=== PATIENT | female | born 1965 | race Hispanic/Latino ===

== ENCOUNTER 2016-06-25 11:38 | Inpatient (IN) | payer OTHER, MEDICAID ==
[~2016-06-25] VITALS: Ht 160 cm; Wt 68.8 kg
[~2016-06-25 11:38] MED LIST: GABA100C PO; INSU100V3 IJ; INSU100V6 SQ; SIMV10TA4 PO; VENL75CA3 PO
[2016-06-25 11:40] VITALS: BP 165/92; PULSE 82; RESP 10; O2SAT 98
--- NOTE | 2016-06-25 12:06 | ED.REPORT ---
HPI-Neurologic Deficit Date of Service Jun 25, 2016 ED Provider: Con Steve DO Pt is a 50 y/o female w/ a hx of HTN, IDDM, presenting to the ED with a family member due to multiple vague neurological complaints onset 2-3 days ago. Pt c/o confusion (disorientation), bilateral fingertip numbness, small duration of bilateral lower extremity weakness, intermittent mild headache, blurred vision, dizziness, nausea. Pt denies vomiting, diarrhea, bowel or bladder incontinence, cough, fever. She has a remote history of migraines. There is a family history of strokes. Nursing Notes Stated Complaint: DISORIENTED/DIZZY/POSSIBLE HIGH BLOOD PRESSURE Chief Complaint: Neuro Symptoms/ Deficits Nursing Notes Reviewed: Yes Allergies: Coded Allergies: No Known Allergies (Verified , 01/31/12) Scheduled Insulin Aspart (NovoLOG U-100 Pen) 100 Unit/Ml Insuln.pen 10 UNITS SQ TIDWM Insulin Glargine (Lantus U100 Solostar Insulin Pen) 100 Unit/1 Ml Insuln.pen 50 UNITS SQ HS Venlafaxine (Venlafaxine) 100 Mg Tablet 100 PO MORNING Scheduled PRN Gabapentin (Gabapentin) 100 Mg Capsule 100 MG PO HS PRN PRN For Restlessness General Time Seen by Provider: 12:13 Chief Complaint Mental status change Hx Obtained From: Patient Arrived By: Walk-in Sudden in Onset?: No Onset Occurred: 2 days ago Symptom Duration: Since onset Severity: Current: No pain currently Severity: Maximum: No pain Similar Sx Previous: No Risk Factors TPA Administration/Criteria Stroke Thrombolytic Therapy : TPA Considered: Yes TPA Administered Intravenously: No, exclusion criteria NIH Stroke Scale Level of Consciousness: Alert and responsive (0) Ask Month & Age: Both questions right (0) Open/Close Eyes/Hand Business Analytics Manager: Performs both tasks (0) Horizontal EO Movements: None (0) Visual Hunter: Complete hemianopsia (2) (left) Facial Palsy: Normal symmetry (0) Right Arm Motor Drift (10s): No drift 10 sec (0) Left Arm Motor Drift (10s): No drift 10 sec (0) Right Leg Motor Drift (5s): No drift 5 sec (0) Left Leg Motor Drift (5s): No drift 5 sec (0) Limb Ataxia FNF/Heel-Lee: Ataxia in 1 limb (1) (LUE) Sensation (Arms/Legs/Face): No sensory loss (0) Dysarthria: No dysarthria, normal (0) NIHSS Score: 3 Time NIHSS Performed: 12:15 Date NIHSS Performed: Jun 25, 2016 Past Medical History Past Medical History IDDM Hypertension Peripheral neuropathy Hx migraines Past Surgical History denies Smoking History Never Smoker Social History Alcohol Use: 1-3 per week Drug Use: Denies drug use Occupation lives by self. Ambulatory Status Independent Review of Systems Constitutional: Denies: Chills, Fever Eyes: Reports: Blurred bilateral Respiratory: Denies: Non-productive cough, Shortness of breath Cardiovascular: Denies: Chest pain, Dyspnea on exertion GI: Reports: Nausea, Denies: Abdominal pain, Diarrhea, Vomiting Neurologic: Reports: Confusion, Dizziness, Headache, Numbness, Vision change, Weakness, Denies: Bladder dysfunction, Bowel dysfunction, Focal weakness, Seizure, Shaking, Slurred speech, Spinning sensation, Syncope, Unable to speak Complete sys rev & neg: except as marked. Physical Exam Initial Vital Signs Vital Signs (First) Date Time Temp Pulse Resp B/P Pulse Ox O2 Delivery O2 Flow Rate FiO2 06/25/16 11:40 36.2 82 10 165/92 98 Room Air Initial VS: Reviewed, Vital signs abnormal ENT: Mucous membranes moist, Conjunctiva normal, No scleral icterus Neck: Supple, Full range of motion Abdomen / GI: Soft, Non-tender Extremities: Vascular intact, Neuro intact, No swelling, No tenderness Skin: Warm, Dry, No cyanosis Psychiatric: Mood/affect normal, Behavior normal, Normal thought content General/Constitutional: Awake, Alert, No acute distress, Cooperative, Not toxic appearing Head / Eyes: Atraumatic, Normocephalic, PERRL Respiratory / Chest: Atraumatic, Breath sounds NL, Breath sounds = bilat, No respiratory distress, No rales, No rhonchi, No wheezing, No retractions, No stridor, No chest tenderness, No chest wall deformity, No crepitus Cardiovascular: Heart rate NL, Regular rhythm, Heart sounds NL, No gallop, No murmurs, No rubs, Cap refill not delayed, Peripheral circulation NL Neurologic: Oriented X3, Speech NL, No motor deficits, No sensory deficits Complete left hemianopsia - 2 pts LUE ataxia - 1 pt NIH = 3 pts Otherwise normal Interpretation & Diagnostics Lab Results Interpretation Result Diagram: 06/25/16 1200 06/25/16 1200 Test 06/25/16 12:00 06/25/16 12:29 White Blood Count 6.8th/mm3 (3.8-10.1) Red Blood Count 4.77mil/mm3 (3.90-5.20) Hemoglobin 13.3g/dL (12.0-15.6) Hematocrit 38.9% (35.0-46.0) Mean Corpuscular Volume 81.6fL (81-100) Mean Corpuscular Hemoglobin 27.9pg (27.0-35.0) Mean Corpuscular Hemoglobin Concent 34.2% (32.0-37.0) Red Cell Distribution Width 12.3% (12.3-15.4) Platelet Count 308bil/L (150-400) Neutrophils (%) (Auto) 55.2% (40-74) Lymphocytes (%) (Auto) 36.5% (14-46) Monocytes (%) (Auto) 5.1% (4-12) Eosinophils (%) (Auto) 2.6% (0-5) Basophils (%) (Auto) 0.3% (0-3) Activated Partial Thromboplast Time 26.9sec (22.8-33.0) Sodium Level 132mEq/L (134-144) Potassium Level 3.6mEq/L (3.5-5.2) Chloride Level 96mEq/L (97-108) Carbon Dioxide Level 22mmol/L (18-29) Blood Urea Nitrogen 8mg/dL (6-24) Creatinine 0.54mg/dL (0.57-1.00) Estimat Glomerular Filtration Rate 170mL/min (>59) Glucose Level 404mg/dL (60-99) Calcium Level 9.1mg/dL (8.5-10.1) Magnesium Level 1.8mg/dL (1.6-2.6) Total Bilirubin 0.5mg/dL (0.0-1.2) Aspartate Amino Transf (AST/SGOT) 17U/L (0-50) Alanine Aminotransferase (ALT/SGPT) 20U/L (0-32) Alkaline Phosphatase 104U/L (25-150) Total Protein 7.3g/dL (6.4-8.4) Albumin 4.3g/dL (3.4-5.0) Hold Loving Top Tube Received (Received) ECG Interpretation Time: 13:23 Interpreted by: ED physician Normal ECG Interpretation: Normal ECG w/ rate of... (79), Normal rate, Normal sinus rhythm, No acute ischemic changes, Normal QRS, Normal axis, Normal intervals, Adequate tracing CT Head Interpretation IMPRESSION: No acute intracranial abnormality. No explanation for confusion. Dictated by: Valerie Callahan M.D. on 06/25/2016 at 12:43 Approved by: Valerie Callahan M.D. on 06/25/2016 at 12:44 Study: Head CT no contrast Interpretation / Wet Read by: Interpret - Radiologist Re-Eval/Medical Decision Med Decision/Clinical Course Patient has an NIH stroke scale of 3 with left-sided hemianopsia and left arm ataxia highly suspicious for subacute stroke. She will be admitted. Re-Evaluation/Progress : Time of Eval: 12:53 Re-Evaluation/Progress Note: Pt rechecked. Informed pt of need for admission. Pt understands and agrees with plan for admission. All questions addressed. Consultation : Referral / Consult Name: Amanda Arceo DO Consulted With: Hospitalist Call Returned at: 14:44 Temperature Logging Operator: Will see patient, Agrees with eval, Agrees with plan, Accepts admit Counseled Regarding: Diagnosis, Lab results, Need for admission Discharge & Departure Impression: Primary Impression: CVA (cerebral vascular accident) CVA mechanism: unspecified Qualified Code: I63.9 - Cerebral infarction, unspecified Disposition: ADMITTED TO HOSPITAL Discharge Condition All VS Reviewed: Yes Condition: Stable Referrals: Fermin Larios DO (PCP) Praveen Attestation Portions of this note were transcribed by Roman Jeronimo. I, Dr. Steve personally performed the history, physical exam and medical decision-making; I reviewed and confirmed the accuracy of the information in the transcribed note. Signed by Praveen Pena, 06/25/16 - 1300 copies to: Fermin Larios Timothy S DO Jun 25, 2016 12:06 ROMAN JERONIMO Jun 25, 2016 12:20 ROMAN JERONIMO Jun 25, 2016 12:20
--- NOTE | 2016-06-25 12:46 | DRSVH ---
PROCEDURE: CT BRAIN WITHOUT CONTRAST ([id number]) INDICATIONS: confusion TECHNIQUE: Noncontrast 4.5 mm thick angled axial sections acquired from the foramen magnum to the vertex, with c oronal reformats. COMPARISON: [facility], CT, BRAIN W/O CONTRAST, 03/15/2007, 9:29. FINDINGS: Image quality: Excellent. CSF spaces: Basal cisterns are patent. No extra-axial fluid collections. The ventricles are symmet joe in size and shape. Brain: No intracranial bleeds or masses. There is cerebral volume loss for age, with resultant vent ricular and sulcal prominence. There are periventricular and deep white matter chronic small vessel ischemic changes. There is intracranial internal carotid artery atherosclerosis. Skull and face: Calvarium and visualized facial bones appear intact, without suspicious lesions. Sinuses: Left maxillary sinus retention cyst is present. Visualized sinuses and mastoids are otherwi se clear. IMPRESSION: No acute intracranial abnormality. No explanation for confusion. Dictated by: Valerie Callahan M.D. on 06/25/2016 at 12:43 Approved by: Valerie Callahan M.D. on 06/25/2016 at 12:44
[2016-06-25] MEDS ORDERED: 0.9% Sodium Chloride 1,000 ML IV ONE (12:56)
[2016-06-25 13:12] LABS: INR 0.94 ratio
[2016-06-25 13:15] LABS: BASOPHILS % (AUTO) 0.3 % (0-3); EOSINOPHILS % (AUTO) 2.6 % (0-5); MONOCYTES % (AUTO) 5.1 % (4-12); Mean Corpuscular Hemoglobin 27.9 pg (27.0-35.0); Mean Corpuscular Volume 81.6 fL (81-100); NEUTROPHILS % (AUTO) 55.2 % (40-74); Platelet Count 308 bil/L (150-400)
[2016-06-25 14:09] VITALS: BP 139/79; PULSE 76; RESP 13; O2SAT 97
[2016-06-25] MEDS ORDERED: SIMV40TA5 (14:14)
[2016-06-25] MEDS ORDERED: GABA-500 PO (14:14)
[2016-06-25] MEDS ORDERED: VENL75CA95 (14:14)
[2016-06-25] MEDS ORDERED: INSU100I13 SQ (14:14)
[2016-06-25] MEDS ORDERED: VENL100T3 PO (14:14)
[2016-06-25] MEDS ORDERED: OXYC1TAB24 (14:14)
[2016-06-25] MEDS ORDERED: AZIT250T4 (14:14)
[2016-06-25] MEDS ORDERED: INSU100I SQ (14:14)
[2016-06-25] MEDS ORDERED: LISI-571 (14:14)
--- NOTE | 2016-06-25 14:29 | NUR ---
Evaluation completed. Please go to "Notes" then click on "Assessments and Notes" (bottom left corner of screen). Then select appropriate discipline tab on top of screen.
[2016-06-25 14:40] VITALS: BP 139/79; PULSE 76; RESP 13; O2SAT 97
[2016-06-25] MEDS ORDERED: Alum-Mag Hydrox-Simeth 30 mL Suspension PO PRN ×2 (14:45→16:00)
[2016-06-25] MEDS ORDERED: Ondansetron 2 mg/mL 2 mL Inj IVPUSH PRN (14:45)
[2016-06-25 15:54] VITALS: BP 149/78; PULSE 74; RESP 19; O2SAT 97
[2016-06-25 15:55] VITALS: PULSE 75
[2016-06-25] MEDS ORDERED: 0.9% Sodium Chloride 1,000 ML IV SCH (15:56)
[2016-06-25] MEDS ORDERED: Polyethylene Glycol (PEG) 17 Gm Powder PO PRN (16:00)
[2016-06-25] MEDS ORDERED: Labetalol 5 mg/mL 4 mL Inj IVPUSH PRN (16:00)
[2016-06-25 16:01] LABS: APPEARANCE,URINE CLEAR (CLEAR,HAZY); COLOR,URINE YELLOW (YELLOW); OCCULT BLOOD,URINE NEGATIVE (NEGATIVE); UROBILINOGEN,URINE NORMAL (NORMAL)
[2016-06-25] MEDS ORDERED: Glucose 40% Oral Gel 15 Gm Tube PO PRN (16:25)
--- NOTE | 2016-06-25 16:36 | PCM.HPMED ---
Subjective Date of Service Jun 25, 2016 Primary Provider: Admitting Physician: Amanda Arceo DO Primary Care Physician: Fermin Larios DO Attending Physician: Amanda Arceo DO Admit Status: From the Emergency Department Chief Complaint: Confusion, weakness, blurry vision. History of Present Illness: Pt is a 50 y/o female w/ a hx of HTN, IDDM, presenting to the ED with a family member due to multiple vague neurological complaints onset 2-3 days ago. Patient is a poor historian and family member is no longer at bedside. Per ED notes, pt c/o confusion (disorientation), bilateral fingertip numbness, small duration of bilateral lower extremity weakness, intermittent mild headache, blurred vision, dizziness, nausea. Pt denies vomiting, diarrhea, bowel or bladder incontinence, cough, fever. She has a remote history of migraines. There is a family history of strokes. She admits to forgetting to take her insulin and she doesn't remember that she is supposed to be on blood pressure medication (after review of [facility], was prescribed lisinopril which she denies knowing about). Review of Systems: Positive per HPI, otherwise negative Allergies Coded Allergies: No Known Allergies (Verified , 01/31/12) Home Medications Insulin Aspart (NovoLOG U-100 Pen) 100 Unit/Ml Insuln.pen 10 UNITS SQ TIDWM Insulin Glargine (Lantus U100 Solostar Insulin Pen) 100 Unit/1 Ml Insuln.pen 50 UNITS SQ HS Venlafaxine (Venlafaxine) 100 Mg Tablet 100 PO MORNING Scheduled PRN Gabapentin (Gabapentin) 100 Mg Capsule 100 MG PO HS PRN PRN For Restlessness PMH Diabetes mellitus type I Hypertension Diabetic peripheral neuropathy Hx migraines Depression and anxiety PTSD Surgical History bladder surgery Family History Sister with breast cancer Many family members with stroke Social History Hx Alcohol Use: Yes (social only) Hx Substance Use: No Hx Tobacco Use: No Smoking Status: Never Smoker Living Arrangement: Alone Exam Vital Signs Vital Sign - Last Date Time Temp Pulse Resp B/P Pulse Ox O2 Delivery O2 Flow Rate FiO2 06/25/16 15:55 75 06/25/16 15:54 36.7 19 149/78 97 Room Air Exam NIH stroke scale: Level of Consciousness: Alert and responsive (0) Ask Month & Age: Both questions right (0) Open/Close Eyes/Hand Traffic Attendant: Performs both tasks (0) Horizontal EO Movements: None (0) Visual Hunter: Complete hemianopsia (2) (left) Facial Palsy: Normal symmetry (0) Right Arm Motor Drift (10s): No drift 10 sec (0) Left Arm Motor Drift (10s): Drift left arm (1) Right Leg Motor Drift (5s): No drift 5 sec (0) Left Leg Motor Drift (5s): No drift 5 sec (0) Limb Ataxia FNF/Heel-Lee: Ataxia in 1 limb (1) (RUE) Sensation (Arms/Legs/Face): No sensory loss (0) Dysarthria: No dysarthria, normal (0) NIHSS Score: 4 Time NIHSS Performed: 16:00 Date NIHSS Performed: Jun 25, 2016 DO Cristo General: A&O x3, pleasant, no acute distress HEENT: EOMI, PEERL, neck supple, full ROM, trachea midline Pulmonary: clear to auscultation B/L Cardiovascular: Regular rhythm, normal rate, No M/G/R Abd: soft, nontender, nondistended Extremities: no edema Psych: Appropriate mood and effect . Lab and Diagnostics Result Diagram: 06/25/16 1200 06/25/16 1200 X-Rays, CTs and MRIs 06/25/16 CT BRAIN WITHOUT CONTRAST ([id number]) INDICATIONS: confusion TECHNIQUE: Noncontrast 4.5 mm thick angled axial sections acquired from the foramen magnum to the vertex, with coronal reformats. COMPARISON: [facility], CT, BRAIN W/O CONTRAST, 03/15/2007, 9:29. FINDINGS: Image quality: Excellent. CSF spaces: Basal cisterns are patent. No extra-axial fluid collections. The ventricles are symmetric in size and shape. Brain: No intracranial bleeds or masses. There is cerebral volume loss for age , with resultant ventricular and sulcal prominence. There are periventricular and deep white matter chronic small vessel ischemic changes. There is intracranial internal carotid artery atherosclerosis. Skull and face: Calvarium and visualized facial bones appear intact, without suspicious lesions. Sinuses: Left maxillary sinus retention cyst is present. Visualized sinuses and mastoids are otherwise clear. IMPRESSION: No acute intracranial abnormality. No explanation for confusion. Dictated by: Valerie Callahan M.D. on 06/25/2016 at 12:43 Approved by: Valerie Callahan M.D. on 06/25/2016 at 12:44 Assessment & Plan Pt is a 50 y/o female w/ a hx of HTN, IDDM, presenting to the ED with a family member due to multiple vague neurological complaints onset 2-3 days ago. 1. Acute CVA, present on admission - Last felt normal 2 days ago - NIH stroke score 4. + left hemianopsia, L pronator drift, R UE ataxia - Patient has diabetic neuropathy so difficult to assess any sensation loss - CT showed no acute intracranial abnormality. - Carotid doppler pending - CTA pending - Passed swallow examination - PT and OT pending - Echocardiogram pending - Atorvastatin started, aspirin given in the ED - Nurse to asses neuro Q4hrs - Telemetry overnight awaiting echocardiogram. Consider d/c tomorrow 2. Diabetes mellitus type 1, present on admission, chronic - Patient admits to forgetting her insulin, especially at night - Patient states that she is prescribed 50 U glargine at night and Novolog 10 units before each meal - [facility] records show PCP prescribed 55 units QHS and QAM (?) - Ordered glargine 30 units QHS, lispro 5 units before each meal, medium dose coverage. Will adjust as needed - Last A1c per PCP records was 8.6 in October 2015 - A1c pending 3. Diabetic neuropathy, present on admission, chronic - gabapentin, prescribed 600mg BID. Will hold off in the acute setting while doing Q4h neuro checks. 4. Depression with anxiety, present on admission, chronic Continue home dose of Venlafaxine 5. Medication noncompliance -Patient admits to not taking both her insulin and hypertensive medications. Patient states that she does not take them because she forgets to take them however according to family sometime she electively decides not to take them. - Acetaminophen as needed for mild pain/fever/headache - Bowel regimen as needed - Antiemetic as needed Patient admitted under inpatient status with expected length of stay > 2 midnights for severity of present symptoms, complexities of treatment plan and risk for adverse events CODE STATUS: Full. Confirmed with patient VTE Prophylaxis: Sub-Q Heparin (Unfractionated) Resuscitation Status: CPR: Attempt Resuscitation Attending Statement The patient was seen and examined together with Dr. Lemons on 06/25/16 and I have added additional information to the note above. copies to: Fermin Larios DO Zakiya Lemons DO Jun 25, 2016 16:35 Amanda Arceo DO Jun 27, 2016 15:50
[2016-06-25 17:04] LABS: INR 0.93 ratio
[2016-06-25 17:14] LABS: APPEARANCE,URINE CLEAR (CLEAR,HAZY); COLOR,URINE YELLOW (YELLOW); OCCULT BLOOD,URINE NEGATIVE (NEGATIVE); UROBILINOGEN,URINE NORMAL (NORMAL)
--- NOTE | 2016-06-25 17:50 | DRSVH ---
PROCEDURE: US BILATERAL DUPLEX DOPPLER IMAGING OF THE CAROTIDS ([id number]) INDICATIONS: Evaluate stroke follow up TECHNIQUE: Color and pulse Doppler interrogation was performed of both carotid systems, with image documentation and velocity measurements. COMPARISON: None. FINDINGS: All stenosis calculations are based on NASCET criteria. Right side: Brachial blood pressure: 139/79 mm Hg. Common carotid artery peak systolic velocity: 59 cm/sec. Internal carotid artery peak systolic velocity: 59 cm/sec. Internal carotid artery end diastolic velocity: 25 cm/sec. External carotid artery peak systolic velocity: 76 cm/sec. ICA/CCA peak systolic ratio: 1.0. Marcelino scale imaging description: Mild calcific plaque at the bifurcation Percent internal carotid artery stenosis: Less than 50%. Vertebral artery: Flow direction is antegrade. Left side: Brachial blood pressure: 149/78 mm Hg. Common carotid artery peak systolic velocity: 66 cm/sec. Internal carotid artery peak systolic velocity: 75 cm/sec. Internal carotid artery end diastolic velocity: 23 cm/sec. External carotid artery peak systolic velocity: 64 cm/sec. ICA/CCA peak systolic ratio: 1.14. Marcelino scale imaging description: Mild calcific plaque at the bifurcation Percent internal carotid artery stenosis: Less than 50%. Vertebral artery: Flow direction is antegrade. IMPRESSION: 1. Less than 50% bilateral internal carotid artery stenosis. 2. Antegrade vertebral artery flow bilaterally. Dictated by: Valerie Callahan M.D. on 06/25/2016 at 17:47 Approved by: Valerie Callahan M.D. on 06/25/2016 at 17:48
[2016-06-25] MEDS: Insulin LISPRO 300 Unit/3 mL Inj SUBQ SCH ×2 (18:20→20:45)
--- NOTE | 2016-06-25 19:34 | NUR ---
Mentation Patient is alert and oriented X3. Able to make needs known. stable vital signs. blood sugar 271. Insulin given as ordered. c/o headaches. PRN Tylenol given with effective results. Carotid doppler done at bed side. Urine sample collected and sent to lab. family at bed side. Doctor at bed side this shift to see patient. patient eating dinner at bed side after set up and no c/o difficulty swallowing. Continue to monitor for vital signs, neuros, and blood sugars.
[2016-06-25 20:34] VITALS: BP 149/79; PULSE 76; RESP 18; O2SAT 96
[2016-06-25] MEDS: Insulin GLARgine 100 Unit/mL Syringe SUBQ SCH (20:44)
[2016-06-25] MEDS ORDERED: FOLI0.4T2 PO (21:22)
[2016-06-25] MEDS ORDERED: VENL75TA87 PO (22:11)
[2016-06-25] MEDS ORDERED: LISI-571 PO (22:11)
[2016-06-25] MEDS ORDERED: SIMV40TA5 PO (22:11)
[2016-06-25] MEDS ORDERED: ACET325C PO (22:12)
[2016-06-26] VITALS (9 sets, daily range): BP systolic 119–158; BP diastolic 76–88; PULSE 67–82; RESP 16–18; O2SAT 97–100
[2016-06-26] MEDS: Heparin 5,000 Unit/mL Inj SUBQ SCH ×3 (01:04→16:45)
[2016-06-26] MEDS ORDERED: 0.9% Sodium Chloride 1,000 ML IV ONE (07:40)
[2016-06-26] MEDS: Venlafaxine XR 75 mg ER24 Capsule PO SCH (08:25)
[2016-06-26] MEDS: Insulin LISPRO 300 Unit/3 mL Inj SUBQ SCH ×5 (08:27→21:10)
[2016-06-26 08:44] LABS: Mean Corpuscular Hemoglobin 27.8 pg (27.0-35.0); Mean Corpuscular Volume 81.4 fL (81-100)
--- NOTE | 2016-06-26 14:15 | DRSVH ---
PROCEDURE: MRI STROKE PROTOCOL ([id number]) Pre- and post-contrast brain MRI, non-contrast brain MR angiogram, pre- and postcontrast neck MR alex ogram INDICATIONS: stroke TECHNIQUE: Brain: Noncontrast axial T1 spin echo, axial T2 fast spin echo, sagittal and axial FLAIR, coronal T2 fast spin echo, axial gradient echo, axial diffusion and ADC through the brain. After the administr ation of contrast, axial 3D VIBE of the cranial vasculature and brain. Brain MRA: Non-contrast 3-D time of flight MR angiogram, with multiple alsnwat-anrqoramk-fyoszuseyr (MIP) reformats performed. Neck MRA: Axial and sagittal TruFISP through the neck. Coronal dynamic MR angiogram during administ ration of contrast in the arterial and venous phases, with 3-dimenstional jjccbhy-umybjxids-sdzseisoy n (MIP) reformats constructed from subtraction images. COMPARISON: [facility], MR, BRAIN W&W/O CONTRAST, 03/16/2007, 16:19. [facility], US, US CAROTID DPLX DOPPLER BILAT, 06/25/2016, 16:56. FINDINGS: Image quality: Excellent. BRAIN: CSF spaces: Ventricles are normal in size and shape. Basal cisterns are patent. No extra-axial flu id collections. Brain: No intracranial bleeds or mass effects. Marcelino-white matter interface is normal. Diffusion we ighted images demonstrate a roughly 5 cm anteroposterior region of elevated signal intensity involvin g the corpus callosal splenium, extending into the right anterior/medial temporal lobe. There are sev eral small adjacent foci of elevated diffusion signal within the right occipital lobe, as well as the posterior limb of the right internal capsule and right thalamus. These lesions demonstrate moderate FLAIR signal elevation. Mild diffuse cervical volume loss. Mild degree of patchy high FLAIR signal wi thin the periventricular and subcortical white matter. Brainstem appears normal. Normal intravascula r flow voids are present. No abnormal intracranial enhancement. Skull and face: Calvarial marrow signal is normal. Orbits appear normal. Sinuses: Left maxillary sinus retention cysts. Sinuses and mastoids are otherwise clear. 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 Anterior circulation: Intracranial internal carotid arteries are normal in size and enhancement. Th e flow within the paired anterior cerebral arteries is normal and symmetric. The flow within the mid dle cerebral arteries is normal and symmetric. The anterior communicating artery is seen. No stenos es, occlusions, or aneurysms. Posterior circulation: The visualized portions of the vertebral arteries demonstrate normal caliber, and join to form a normal appearing basilar artery. Left protrusio artery demonstrates normal flow. The right posterior cerebral artery demonstrates markedly reduced flow. NECK MR ANGIOGRAM: Carotids: Great vessels demonstrate a conventional anatomy as they arise from the aortic arch. The origins of the common carotid arteries appear patent. The calibers and courses of both common caroti d arteries are normal. The bifurcation regions appear normal bilaterally. The internal carotid raghu barrera demonstrate normal course and caliber. Posterior circulation: The origins of the vertebral arteries appear patent. Proximal vertebral arter ies not well-seen secondary venous overlap. Vertebral arteries are otherwise within normal limits Miscellaneous: There is a persistent right carotid-basilar communication as described above. Subclavi an arteries appear patent. Pre-contrast images through the neck show no soft tissue abnormalities. IMPRESSION: BRAIN MRI: 1. Subacute right sided infarct involving the corpus callosal splenium, medial temporal lobe, thalamu s, posterior limb of internal capsule, and occipital lobe. 2. No acute process. BRAIN MR ANGIOGRAM: 1. Persistent right trigeminal carotid-basilar anastomosis. 2. Severely reduced flow within the right posterior cerebral artery, compatible with the above descri bed infarct. NECK MR ANGIOGRAM: 1. No internal carotid artery stenosis bilaterally. 2. The vertebral arteries are patent as visualized, but are not well-seen proximally secondary to edvin ous overlap. The estimate of stenosis included in the report of the imaging study was calculated using the NASCET method Dictated by: Valerie Callahan M.D. on 06/26/2016 at 14:01 Approved by: Valerie Callahan M.D. on 06/26/2016 at 14:13
--- NOTE | 2016-06-26 14:24 | DRSVH ---
[facility] [address] [place] [address] Echocardiogram Report Name: ESTHER JOHN Study Date: 06/26/2016 Height: 63 in Hospital Exam Location: [facility] Weight: 153 lb Gender: Female BSA: 1.7 m2 : 1965 Age: 50 yrs BP: 158/88 mmHg Reason For Study: CVA Ordering Physician: HOSPITALIST [facility] Performed By: Roddy Arevalo Referring Physician: Jw GALAN Interpretation Summary 1. Normal left ventricular size with mild proximal septal thickening and normal systolic function with an estimated EF of 60-65% 2. Normal right ventricular size and systolic function. 3. No evidence for valvular pathology. 4. A saline contrast study showed no evidence for interatrial shunt. There is no old study for comparison Procedure: A two-dimensional transthoracic echocardiogram with color flow and Doppler was performed. The study quality was technically good. There is no prior echocardiogram noted for this patient. A saline contrast injection was performed to assess for cardiac shunting. The patient was in normal sinus rhythm during the exam. Left Ventricle: The left ventricle is normal in size. There is normal left ventricular wall thickness. Proximal septal thickening is noted. The ejection fraction is estimated to be 60-65%. No obvious wall motion abnormalities. Right Ventricle: The right ventricle is normal in size and function. Atria: Both atria are normal in size. Injection of contrast documented no interatrial shunt. Mitral Valve: The mitral valve is normal in structure and function. There is trace mitral regurgitation. Aortic Valve: The aortic valve is trileaflet. The aortic valve opens well. No aortic regurgitation is present. Tricuspid Valve: The tricuspid valve is normal in structure and function. No tricuspid regurgitation. Pulmonary artery pressures cannot be estimated because of the lack of a measurable TR jet velocity. Pulmonic Valve: The pulmonic valve is normal in structure and function. There is no pulmonic valvular regurgitation. Great Vessels: The aortic root is normal size. The dimensions of the ascending aorta are normal. The pulmonary artery is normal size. The IVC is of normal diameter and collapses greater than 50% with a sniff. This suggests a low right atrial pressure of 3 mm Hg. Pericardium/ Pleura There is no pericardial effusion. There is no pleural effusion. MMode/2D Measurements & Calculations EPSS: 0.19 cm RA long axis LVOT diam: 2.1 cm IVSd: 0.76 cm LA A2 area: 15.0 cm Ao root diam LA A4 area: 16.1 cm LA length (vol) RA area: 13.1 cm Aortic Jxn: 2.3 cm RA vol: 36.3 ml asc Aorta Diam LA vol: 46.8 ml RA : 21.0 ml/m2 LA vol index IVC diam: 1.5 cm RVD1 (basal) RVD2 (mid): 3.1 cm Doppler Measurements & Calculations Ao V2 max MV E max braeden MV E/A: 0.82 PA V2 max : 109.0 cm/sec : 67.3 cm/sec Med Peak E' Braeden : 62.1 cm/sec Ao max P.8 mmHg MV A max braeden PA mean PG Ao mean P.8 mmHg : 82.1 cm/sec E/E' med: 14.8 : 0.88 mmHg LVOT Max Braeden Lat Peak E' Braeden PA Accel Time : 77.6 cm/sec : 0.09 sec E/E' lat: 11.4 DRU(I,D): 2.4 cm E/e' average sev ratio: 0.71 Pulm A Revs Dur MV A dur : 0.12 sec MV dec time: 0.18 secAo V2 mean LV V1 max PG PA V2 mean : 81.1 cm/sec : 43.6 cm/sec Ao V2 VTI: 24.7 cm LV V1 VTI : 17.7 cm DRU(V,D): 2.4 cm2 DRU indexed to SARKIS Mcdermott (cm^2/m^2): 1.4 Dur: -0.01 msec Reading Physician:02:23 PM
--- NOTE | 2016-06-26 14:54 | NUR ---
Social Work: Brief Note Data: Pt is a 50 y/o female admitted for CVA, DM. Pt's PCP is Dr Rome, pt's insurance is [employer] blind/disabled. EMR reviewed. PT and MD recommending HH for pt at d/c. FILM NUMBERER met with pt at bedside, role explained. Pt states she is agreeable to HH, choice list provided, no preference of company stated. FILM NUMBERER referred pt to [facility]. Access given. F2F in FILM NUMBERER folder. Pt requested a FWW and bath bench if possible. FILM NUMBERER will discuss need with PT and MD. FILM NUMBERER will continue to follow. Assessment: Pt who is independent at baseline. Plan: Pt will d/c home via POV with sister when medically stable with [facility], RN/PT/OT. FILM NUMBERER to discuss need for FWW and bath bench with MD and PT. FILM NUMBERER will continue to follow. OMAR Cardenas
--- NOTE | 2016-06-26 15:04 | NUR ---
SHIFT NOTE Pt alert and oriented x 3, cooperative with care, yet has a chronic short term memory problem since childhood per pt and family member. 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 Pt denies pain, denies SOB, denies CP, denies N/V/D. Pt ambulates with FWW with SBA for safety. Discussed some strategies with pt and her sister to help her remember to take her BS and insulin timely. Pt open to ideas and appreciative to suggestions. Pt continues to have Left sided peripheral vision loss. Pt bed in low position, has call light. BS have been trending in 160s-190s today with correctional insulin given. Pt informed to notify RN of any pain or changes, pt agreeable to plan.
--- NOTE | 2016-06-26 16:10 | NUR ---
Evaluation completed. Please go to "Notes" then click on "Assessments and Notes" (bottom left corner of screen). Then select appropriate discipline tab on top of screen.
--- NOTE | 2016-06-26 18:28 | PCM.PNMED ---
Subjective Date of Service Jun 26, 2016 Subjective Pt is a 50 y/o female w/ a hx of HTN, IDDM, presenting to the ED with a family member due to multiple vague neurological complaints onset 2-3 days ago. Today patient states that she is feeling well. She recognizes the left-sided blindness however, does not seem concerned about it in that she hasn't asked if it permanent, whether she can drive, etc. She has been ambulating, eating. Denies headache, dizziness, nausea, vomiting, dysuria, falling. Exam Vital Signs Vital Sign - Last Date Time Temp Pulse Resp B/P Pulse Ox O2 Delivery O2 Flow Rate FiO2 06/26/16 17:54 36.3 76 16 142/76 98 Room Air Intake and Output 06/25/16 06/25/16 06/26/16 Cumulative From/Thru 15:00 23:00 07:00 06/25/16 11:40 - 06/26/16 06:25 Intake Total 400 ml 300 ml 700 ml Output Total 400 ml 1000 ml 1400 ml Balance 0 ml -700 ml -700 ml Intake Oral 400 ml 300 ml 700 ml Output Urine Total 400 ml 1000 ml 1400 ml # Bowel Movements 1 1 Exam Neuro exam was the same as yesterday except that her right arm ataxia was absent. Still has mild pronator drift in left arm and complete left hemianopsia. Gait not tested General: A&O x3, pleasant, no acute distress, smiling HEENT: EOMI, PEERL, neck supple, full ROM, trachea midline Pulmonary: clear to auscultation B/L Cardiovascular: Regular rhythm, normal rate, No M/G/R Abd: soft, nontender, nondistended Extremities: no edema Psych: Appropriate mood and effect . IVs and Medications Medications Reviewed: Medications were reviewed in detail Lab and Diagnostics Result Diagram: 06/26/16 0810 06/26/16 0810 X-Rays, CTs and MRIs 06/25/16 CT BRAIN WITHOUT CONTRAST ([id number]) INDICATIONS: confusion TECHNIQUE: Noncontrast 4.5 mm thick angled axial sections acquired from the foramen magnum to the vertex, with coronal reformats. COMPARISON: [facility], CT, BRAIN W/O CONTRAST, 03/15/2007, 9:29. FINDINGS: Image quality: Excellent. CSF spaces: Basal cisterns are patent. No extra-axial fluid collections. The ventricles are symmetric in size and shape. Brain: No intracranial bleeds or masses. There is cerebral volume loss for age , with resultant ventricular and sulcal prominence. There are periventricular and deep white matter chronic small vessel ischemic changes. There is intracranial internal carotid artery atherosclerosis. Skull and face: Calvarium and visualized facial bones appear intact, without suspicious lesions. Sinuses: Left maxillary sinus retention cyst is present. Visualized sinuses and mastoids are otherwise clear. IMPRESSION: No acute intracranial abnormality. No explanation for confusion. Dictated by: Valerie Callahan M.D. on 06/25/2016 at 12:43 Approved by: Valerie Callahan M.D. on 06/25/2016 at 12:44 06/25/16 BILATERAL DUPLEX DOPPLER IMAGING OF THE CAROTIDS ([id number]) INDICATIONS: Evaluate stroke follow up TECHNIQUE: Color and pulse Doppler interrogation was performed of both carotid systems, with image documentation and velocity measurements. IMPRESSION: 1. Less than 50% bilateral internal carotid artery stenosis. 2. Antegrade vertebral artery flow bilaterally. Dictated by: Valerie Callahan M.D. on 06/25/2016 at 17:47 Approved by: Valerie Callahan M.D. on 06/25/2016 at 17:48 . 06/26/16 MRI STROKE PROTOCOL ([id number]) Pre- and post-contrast brain MRI, non-contrast brain MR angiogram, pre- and postcontrast neck MR angiogram INDICATIONS: stroke TECHNIQUE: Brain: Noncontrast axial T1 spin echo, axial T2 fast spin echo, sagittal and axial FLAIR, coronal T2 fast spin echo, axial gradient echo, axial diffusion and ADC through the brain. After the administration of contrast, axial 3D VIBE of the cranial vasculature and brain. Brain MRA: Non-contrast 3-D time of flight MR angiogram, with multiple maximum- intensity-projection (MIP) reformats performed. Neck MRA: Axial and sagittal TruFISP through the neck. Coronal dynamic MR angiogram during administration of contrast in the arterial and venous phases, with 3-dimenstional agqxxym-lmdmplhrv-dcotbczcbb (MIP) reformats constructed from subtraction images. COMPARISON: [facility], MR, BRAIN W&W/O CONTRAST, 03/16/2007, 16: 19. [facility], US, US CAROTID DPLX DOPPLER BILAT, 06/25/2016, 16: 56. FINDINGS: Image quality: Excellent. BRAIN: CSF spaces: Ventricles are normal in size and shape. Basal cisterns are patent. No extra-axial fluid collections. Brain: No intracranial bleeds or mass effects. Marcelino-white matter interface is normal. Diffusion weighted images demonstrate a roughly 5 cm anteroposterior region of elevated signal intensity involving the corpus callosal splenium, extending into the right anterior/medial temporal lobe. There are several small adjacent foci of elevated diffusion signal within the right occipital lobe, as well as the posterior limb of the right internal capsule and right thalamus. These lesions demonstrate moderate FLAIR signal elevation. Mild diffuse cervical volume loss. Mild degree of patchy high FLAIR signal within the periventricular and subcortical white matter. Brainstem appears normal. Normal intravascular flow voids are present. No abnormal intracranial enhancement. Skull and face: Calvarial marrow signal is normal. Orbits appear normal. Sinuses: Left maxillary sinus retention cysts. Sinuses and mastoids are otherwise clear. 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 Anterior circulation: Intracranial internal carotid arteries are normal in size and enhancement. The flow within the paired anterior cerebral arteries is normal and symmetric. The flow within the middle cerebral arteries is normal and symmetric. The anterior communicating artery is seen. No stenoses, occlusions, or aneurysms. Posterior circulation: The visualized portions of the vertebral arteries demonstrate normal caliber, and join to form a normal appearing basilar artery. Left protrusio artery demonstrates normal flow. The right posterior cerebral artery demonstrates markedly reduced flow. NECK MR ANGIOGRAM: Carotids: Great vessels demonstrate a conventional anatomy as they arise from the aortic arch. The origins of the common carotid arteries appear patent. The calibers and courses of both common carotid arteries are normal. The bifurcation regions appear normal bilaterally. The internal carotid arteries demonstrate normal course and caliber. Posterior circulation: The origins of the vertebral arteries appear patent. Proximal vertebral arteries not well-seen secondary venous overlap. Vertebral arteries are otherwise within normal limits Miscellaneous: There is a persistent right carotid-basilar communication as described above. Subclavian arteries appear patent. Pre-contrast images through the neck show no soft tissue abnormalities. IMPRESSION: BRAIN MRI: 1. Subacute right sided infarct involving the corpus callosal splenium, medial temporal lobe, thalamus, posterior limb of internal capsule, and occipital lobe. 2. No acute process. BRAIN MR ANGIOGRAM: 1. Persistent right trigeminal carotid-basilar anastomosis. 2. Severely reduced flow within the right posterior cerebral artery, compatible with the above described infarct. NECK MR ANGIOGRAM: 1. No internal carotid artery stenosis bilaterally. 2. The vertebral arteries are patent as visualized, but are not well-seen proximally secondary to venous overlap. The estimate of stenosis included in the report of the imaging study was calculated using the NASCET method Dictated by: Valerie Callahan M.D. on 06/26/2016 at 14:01 Approved by: Valerie Callahan M.D. on 06/26/2016 at 14:13 Cardiac Echo Impressions 06/26/16 Echocardiogram Report Interpretation Summary 1. Normal left ventricular size with mild proximal septal thickening and normal systolic function with an estimated EF of 60-65% 2. Normal right ventricular size and systolic function. 3. No evidence for valvular pathology. 4. A saline contrast study showed no evidence for interatrial shunt. There is no old study for comparison . Assessment & Plan Pt is a 50 y/o female w/ a hx of HTN, IDDM, presenting to the ED with a family member due to multiple vague neurological complaints onset 2-3 days prior to coming in. 1. Acute CVA, present on admission - Last seen normal 2 days prior to presentation - NIH stroke score 4 on presentation. + left hemianopsia, L pronator drift, R UE ataxia - Patient has diabetic neuropathy so difficult to assess any sensation loss - CT showed no acute intracranial abnormality. - Carotid doppler unremarkable - MR angiogram stroke protocol 1. Subacute right sided infarct involving the corpus callosal splenium, medial temporal lobe, thalamus, posterior limb of internal capsule, and occipital lobe. 2. No acute process. - Passed swallow examination - PT working with patient who recommend home health PT and front wheel walker - Echocardiogram unremarkable - Atorvastatin started, aspirin given in the ED - Nurse to asses neuro Q4hrs - Telemetry - Dr Crum, Neurologist, has bee consulted and has agreed to see patient. 2. Diabetes mellitus type 1, present on admission, chronic - Patient admits to forgetting her insulin, especially at night - Patient states that she is prescribed 50 U glargine at night and Novolog 10 units before each meal - [facility] records show PCP prescribed 55 units QHS and QAM (?) - Ordered glargine 30 units QHS, lispro 5 units before each meal, medium dose coverage. Will adjust as needed - Last A1c per PCP records was 8.6 in October 2015 - A1c pending 3. Diabetic neuropathy, present on admission, chronic - gabapentin, prescribed 600mg BID. Will hold off in the acute setting while doing Q4h neuro checks. 4. Depression with anxiety, present on admission, chronic Continue home dose of Venlafaxine - Acetaminophen as needed for mild pain/fever/headache - Bowel regimen as needed - Antiemetic as needed Patient admitted under inpatient status with expected length of stay > 2 midnights for severity of present symptoms, complexities of treatment plan and risk for adverse events Physical therapy recommendations: Recommend D/C to home with HHPT and FWW. CODE STATUS: Full. Confirmed with patient VTE Prophylaxis: Sub-Q Heparin (Unfractionated) Resuscitation Status: CPR: Attempt Resuscitation Attending Statement The patient was seen and examined together with Dr. Lemons on 06/26/16 and I agree with the history, exam and plan as outlined in the note above. Zakiya Lemons DO Jun 26, 2016 18:28 Amanda Arceo DO Jun 27, 2016 15:52
[2016-06-26] MEDS: Insulin GLARgine 100 Unit/mL Syringe SUBQ SCH (21:09)
[2016-06-27] MEDS: Heparin 5,000 Unit/mL Inj SUBQ SCH ×3 (00:48→17:45)
[2016-06-27 01:26] VITALS: BP 150/72; PULSE 74; RESP 16; O2SAT 98
[2016-06-27 05:05] VITALS: BP 140/78; PULSE 68; RESP 16; O2SAT 97
--- NOTE | 2016-06-27 05:47 | NUR ---
Uneventful Night: Pt rested through the night with no complaints of pain or discomfort. Denies SOB, N/V or CP.Alert and oriented. Forgetful at times. 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 Call light within reach, using appropriately. Pleasant and cooperative with care.
[2016-06-27 08:00] VITALS: PULSE 78
[2016-06-27] MEDS: Insulin LISPRO 300 Unit/3 mL Inj SUBQ SCH ×4 (08:17→21:01)
[2016-06-27] MEDS: Venlafaxine XR 75 mg ER24 Capsule PO SCH (08:20)
[2016-06-27 08:30] VITALS: BP 134/79; PULSE 75; RESP 16; O2SAT 98
--- NOTE | 2016-06-27 09:01 | CONS ---
[address] [address] CONSULTATION REPORT PATIENT: ESTHER JOHN : 1965 MR#: [id number] ADMIT: 06/25/2016 JOB ID: [id number] DATE OF SERVICE: 06/27/2016 NEUROLOGY CONSULTATION: REQUESTING PROVIDER: Zakiya Lemons DO (Kathy) DATE OF SERVICE: CHIEF COMPLAINT: Sudden onset of visual field loss and instability of gait. The patient is a very pleasant right-handed woman with multiple medical problems, including hypertension and diabetes type 1 who presented to the emergency department on June 25, 2016 due to multiple vague neurologic symptoms 2-3 days before. She had noted confusion, bilateral finger tip numbness, bilateral lower extremity weakness, mild intermittent headache, blurred vision, with loss of vision in the left visual field, dizziness and nausea. She did not note vomiting, diarrhea, bowel or bladder incontinence, cough or fever. She does have a remote history of migraines and there is a family history of stroke. Her home medications did not include aspirin. She does report home medications include insulin, venlafaxine and gabapentin to be taken p.r.n. ALLERGIES: No known drug allergies. She does have a history of type 1 diabetes and hypertension. She also has a history of diabetic peripheral neuropathy. She does have a history of migraine headaches, depression and anxiety, PTSD. PAST SURGICAL HISTORY: Status post bladder surgery. FAMILY HISTORY: Multiple family members with strokes. SOCIAL HISTORY: Occasional alcohol. She does not smoke and no drug use. NIH initial stroke score was noted to be 4 and this was noted due to complete hemianopsia on the left side and drift of the left arm and ataxia of the right upper extremity. I repeated the NIH stroke scale today and the complete hemianopsia is still present, left homonymous hemianopsia. I do not note any left arm drift today and no ataxia, so the score today is NIH stroke scale of 2. INITIAL LABORATORY STUDIES: WBC 6.8, hemoglobin 13.3, hematocrit 38.9, platelets 308. Sodium was 132, potassium 3.6, chloride was 96, bicarbonate was 22. BUN was 8. Creatinine was 0.54 with glucose of 404. CT of the head: No acute intracranial abnormality. She did pass a swallow evaluation and was given aspirin. REVIEW OF SYSTEMS: A complete review of systems was performed and was remarkable for above-noted. An echocardiogram was performed, demonstrating normal left ventricular size with mild proximal septal thickening and normal systolic function with an estimated ejection fraction of 60%-65%, normal right ventricular size and systolic function. No evidence for valvular pathology. The saline contrast study showed no evidence for an intra-atrial shunt. IMAGING STUDIES: She did have a carotid duplex that demonstrated less than 50% bilateral internal carotid artery stenosis. Antegrade vertebral artery flow bilaterally. I did review her magnetic resonance imaging study of the brain which demonstrated a subacute right-sided infarct involving the corpus callosum splenium, medial temporal lobe, thalamus, posterior limit of the internal capsule and the occipital lobe, persistent right trigeminal carotid-basilar anastomosis, severely reduced flow within the right posterior cerebral artery compatible with the above-described infarct. No internal carotid artery stenosis bilaterally. The vertebral arteries are patent as visualized, not well seen proximally secondary to venous overlap. PHYSICAL EXAMINATION: Temperature 36.8, pulse of 68, respiratory rate of 16, blood pressure 140/78, pulse oximetry 97% on room air. General: She is a well-developed, well-nourished woman in no acute distress. Head: Normocephalic, atraumatic. Neck: Supple. No carotid bruits were auscultated. Negative Kernig. Negative Brudzinski. Chest: Clear to auscultation. Heart: Regular rate and rhythm. Abdomen: Soft, nondistended, nontender. Extremities: No cyanosis, clubbing or edema. NEUROLOGIC EXAMINATION: She is awake, alert and oriented x3. Speech clear and fluent with intact comprehension. There was no aphasia. Cranial nerves: Pupils equal, round and reactive to light. Extraocular movements were smooth and conjugate with no evidence of nystagmus. Face appeared symmetrical. Facial sensation was intact to light touch and temperature bilaterally. There was a complete left homonymous hemianopsia. Tongue was midline. Sternocleidomastoids and trapezii were 5/5 bilaterally. Motor: Normal tone and bulk. Muscle strength 5/5 throughout. Sensation was diminished in a stocking distribution bilaterally. However, vibratory sensation was present in the great toes although reduced. Sensation was diminished to light touch and temperature. Deep tendon reflexes were diminished throughout. Plantars were silent bilaterally. Coordination: Finger to nose was intact without evidence of dysmetria. Gait was deferred. The patient does report that she feels off balance when she ambulates and is requesting a walker. She also feels that she feels unsteady when ambulating around the house. IMPRESSION: Cerebrovascular accident. My suspicion is that this may have been secondary to an artery to artery embolism of the posterior cerebral artery. I do recommend aspirin 81 mg daily. I do recommend a stroke workup. She may also benefit from a Holter monitor study as an outpatient, and if this is unrevealing, either a Zio patch or an event monitor to exclude the possibility of a cardioembolic etiology. I did review the MRI in detail and I will reviewed it in more detail again with the radiologist. Due to the fact that the vertebral arteries were noted to be patent as visualized, however, not well seen proximally secondary to venous overlap, she may benefit from obtaining a CT angiogram to further assess the nature of the vertebral arteries in more detail. She would also benefit from a lipid profile. I suspect that this stroke has been secondary to a combination of stroke risk factors including diabetes mellitus type 1, hypertension and suspected hyperlipidemia and I would recommend that the patient be placed on a statin. I reviewed her EKG which revealed a sinus rate of 79. There is still a possibility of a cardioembolic etiology and thus I would recommend evaluation with a Holter monitor study as an outpatient. Recommend completion of stroke workup. Recommend evaluation by physical therapy and occupational therapy. Thank you, again, Dr. Lemons, for allowing me to participate in the care of your patient. Please feel free to contact me with any questions or concerns. TAHIRA
--- NOTE | 2016-06-27 10:15 | NUR ---
Social Work: Continued d/c planning Data: Pt is on day 2 of hospitalization. EMR reviewed. Pt discussed in rounds. PT and OT both recommending inpt rehab for pt. GI TECHNICIAN met with pt who states [facility] is her preference, UR specialist referring pt. GI TECHNICIAN expressed to pt that if inpt rehab does not work out for her, she will need to either pay privately for SNF, or go home with HH and pay for private pay caregivers if needed. Pt states understanding. GI TECHNICIAN will continue to follow. Plan: Pt will d/c either to inpt rehab, pt referred to [facility], or to SNF private pay, or home with HH and family or private pay caregivers to assist if needed. OMAR Cardenas Addendum: 06/27/16 at 1031 by MARILEE MCCALL SS Pt requested to talk with GI TECHNICIAN and states she thought about it and does not want to go to inpt rehab. She states she would like to go home with HH. GI TECHNICIAN notified . OMAR will continue to follow. OMAR Cardenas
[2016-06-27] MEDS ORDERED: WALK1EAC55 MC ×2 (12:13→12:17)
[2016-06-27] MEDS ORDERED: [UNRECOGNIZED DRUG - SUPPLY] (12:17)
--- NOTE | 2016-06-27 14:28 | NUR ---
Pt off floor for CT via WC. Tele removed. Addendum: 06/27/16 at 1429 by MARISABEL YEE RN off floor at 1400
--- NOTE | 2016-06-27 14:59 | DRSVH ---
PROCEDURE: CT ANGIO HEAD AND NECK (P) INDICATIONS: Stroke TECHNIQUE: Pre-contrast 4.5 mm thick sections acquired from the foramen magnum to the vertex. After the adminis tration of intravenous contrast, 1 mm thick sections acquired from the aortic arch through the [place]. Post-contrast 4.5 mm thick sections then re-acquired from the foramen magnum to the vert ex. 3-dimensional llvnkqf-svyqbiwql-pskdmwmbzj (MIP) and/or volume rendering reformats were acquired of the central intracranial vasculature and neck separately. For radiation dose reduction, the foll owing was used: automated exposure control, adjustment of mA and/or kV according to patient size. COMPARISON: [facility], , MR STROKE PROTOCOL, 06/26/2016, 12:11. FINDINGS: Image quality: Excellent. BRAIN: CSF spaces: Ventricles are normal in size and shape. Basal cisterns are patent. No extra-axial flu id collections. Brain: No midline shift. Hypodensity within the right temporo-occipital lobe, posterior limb of int ernal capsule, and posterolateral thalamus is present, corresponding to the subacute infarction seen by MRI. No intracranial bleeds or masses. Marcelino-white matter interface appears intact. Skull and face: Calvarium and facial bones appear intact, without suspicious lesions. Orbits appear normal. Sinuses: Left maxillary sinus retention cysts. Sinuses and mastoids are otherwise clear. HEAD CT ANGIOGRAPHY: Anterior circulation: Intracranial internal carotid arteries are normal in size and flow. The flow within the paired anterior cerebral arteries is normal and symmetric. The flow within the middle cer ebral arteries is normal and symmetric. The anterior communicating artery is seen. No aneurysms are seen. Posterior circulation: Visualized portions of the vertebral arteries demonstrate normal caliber, and join to form a normal appearing basilar artery. Left posterior sternal arteries patent. There is hig h-grade stenosis of the P2 segment of the right posterior cerebral artery, corresponding to the abnor mality in this location seen by MRI. No aneurysms are seen. NECK CT ANGIOGRAPHY: Carotid system: The great vessels demonstrate a conventional anatomy as they arise from the aortic a rch. The origins of the common carotid arteries appear patent. The common carotid arteries demonstr ate normal caliber and courses. The bifurcation regions are both widely patent. The internal caroti d arteries demonstrate normal calibers and courses. Posterior circulation: The origins of the vertebral arteries both appear widely patent. The more sloan perior extracranial portions of both vertebral arteries also demonstrate normal courses and calibers. They join to form a normal appearing basilar artery. Soft tissues: Visualized neck soft tissues demonstrate no suspicious abnormalities. Bones: No suspicious bony lesions. Visualized cervical spine appears normally aligned. IMPRESSION: 1. No internal carotid artery stenosis bilaterally. Patent bilateral vertebral arteries. 2. Subacute right posterior circulation infarct. 3. Severe narrowing of the right posterior cerebral artery, compatible with the severely reduced flow seen on MRI examination. Dictated by: Valerie Callahan M.D. on 06/27/2016 at 14:47 Approved by: Valerie Callahan M.D. on 06/27/2016 at 14:58
--- NOTE | 2016-06-27 15:23 | NUR ---
Social Work: Continued d/c planning SENIOR WINDOWS ADMINISTRATOR received notification from that pt has decided to pursue inpt rehab. SENIOR WINDOWS ADMINISTRATOR met with pt who states she talked with her sister and would like to go to inpt rehab if possible. SENIOR WINDOWS ADMINISTRATOR updated UR specialist. Referral sent to [facility]. OMAR Cardenas
[2016-06-27 18:03] VITALS: BP 124/75; PULSE 85; RESP 20; O2SAT 99
--- NOTE | 2016-06-27 19:33 | NUR ---
Activity Pt in bed for majority of day. Up at bedside for meals. SBA with FWW for safety. Instructed to use call light before getting up but does not always follow directions. Pt has visual deficit on L side. Encourage pt to follow direction and use call light. Frequent rounding to monitor. Next shift aware and continuing with care.
--- NOTE | 2016-06-27 19:55 | PCM.PNMED ---
Subjective Date of Service Jun 27, 2016 Subjective Pt is a 50 y/o female w/ a hx of HTN, IDDM, presenting to the ED with a family member due to multiple vague neurological complaints onset 2-3 days ago. This morning patient was her usual happy self. She says that she is getting around okay. She had a mild headache. Otherwise, eating and denies dizziness, nausea, vomiting, diarrhea. Exam Vital Signs Vital Sign - Last Date Time Temp Pulse Resp B/P Pulse Ox O2 Delivery O2 Flow Rate FiO2 06/27/16 18:03 36.6 85 20 124/75 99 Room Air Intake and Output 06/26/16 06/26/16 06/27/16 Cumulative From/Thru 15:00 23:00 07:00 06/25/16 11:40 - 06/27/16 06:34 Intake Total 700 ml 400 ml 1800 ml Output Total 800 ml 1550 ml 3750 ml Balance -100 ml -1150 ml -1950 ml Intake Oral 700 ml 400 ml 1800 ml Output Urine Total 800 ml 1550 ml 3750 ml # Bowel Movements 1 Exam Exam Complete left hemianopsia. Otherwise, symptoms of stroke have resolved. General: A&O x3, pleasant, no acute distress, smiling HEENT: EOMI, PEERL, neck supple, full ROM, trachea midline Pulmonary: clear to auscultation B/L Cardiovascular: Regular rhythm, normal rate, No M/G/R Abd: soft, nontender, nondistended Extremities: no edema Psych: Appropriate mood and effect but very limited understanding of her diseases . IVs and Medications Medications Reviewed: Medications were reviewed in detail Lab and Diagnostics Result Diagram: 06/26/16 0810 06/27/16 0630 X-Rays, CTs and MRIs 06/25/16 CT BRAIN WITHOUT CONTRAST ([id number]) INDICATIONS: confusion TECHNIQUE: Noncontrast 4.5 mm thick angled axial sections acquired from the foramen magnum to the vertex, with coronal reformats. COMPARISON: [facility], CT, BRAIN W/O CONTRAST, 03/15/2007, 9:29. FINDINGS: Image quality: Excellent. CSF spaces: Basal cisterns are patent. No extra-axial fluid collections. The ventricles are symmetric in size and shape. Brain: No intracranial bleeds or masses. There is cerebral volume loss for age , with resultant ventricular and sulcal prominence. There are periventricular and deep white matter chronic small vessel ischemic changes. There is intracranial internal carotid artery atherosclerosis. Skull and face: Calvarium and visualized facial bones appear intact, without suspicious lesions. Sinuses: Left maxillary sinus retention cyst is present. Visualized sinuses and mastoids are otherwise clear. IMPRESSION: No acute intracranial abnormality. No explanation for confusion. Dictated by: Valerie Callahan M.D. on 06/25/2016 at 12:43 Approved by: Valerie Callahan M.D. on 06/25/2016 at 12:44 06/25/16 BILATERAL DUPLEX DOPPLER IMAGING OF THE CAROTIDS ([id number]) INDICATIONS: Evaluate stroke follow up TECHNIQUE: Color and pulse Doppler interrogation was performed of both carotid systems, with image documentation and velocity measurements. IMPRESSION: 1. Less than 50% bilateral internal carotid artery stenosis. 2. Antegrade vertebral artery flow bilaterally. Dictated by: Valerie Callahan M.D. on 06/25/2016 at 17:47 Approved by: Valerie Callahan M.D. on 06/25/2016 at 17:48 . 06/26/16 MRI STROKE PROTOCOL ([id number]) Pre- and post-contrast brain MRI, non-contrast brain MR angiogram, pre- and postcontrast neck MR angiogram INDICATIONS: stroke TECHNIQUE: Brain: Noncontrast axial T1 spin echo, axial T2 fast spin echo, sagittal and axial FLAIR, coronal T2 fast spin echo, axial gradient echo, axial diffusion and ADC through the brain. After the administration of contrast, axial 3D VIBE of the cranial vasculature and brain. Brain MRA: Non-contrast 3-D time of flight MR angiogram, with multiple maximum- intensity-projection (MIP) reformats performed. Neck MRA: Axial and sagittal TruFISP through the neck. Coronal dynamic MR angiogram during administration of contrast in the arterial and venous phases, with 3-dimenstional jokowzr-xcatxszli-xlewlslxeh (MIP) reformats constructed from subtraction images. COMPARISON: [facility], MR, BRAIN W&W/O CONTRAST, 03/16/2007, 16: 19. [facility], US, US CAROTID DPLX DOPPLER BILAT, 06/25/2016, 16: 56. FINDINGS: Image quality: Excellent. BRAIN: CSF spaces: Ventricles are normal in size and shape. Basal cisterns are patent. No extra-axial fluid collections. Brain: No intracranial bleeds or mass effects. Marcelino-white matter interface is normal. Diffusion weighted images demonstrate a roughly 5 cm anteroposterior region of elevated signal intensity involving the corpus callosal splenium, extending into the right anterior/medial temporal lobe. There are several small adjacent foci of elevated diffusion signal within the right occipital lobe, as well as the posterior limb of the right internal capsule and right thalamus. These lesions demonstrate moderate FLAIR signal elevation. Mild diffuse cervical volume loss. Mild degree of patchy high FLAIR signal within the periventricular and subcortical white matter. Brainstem appears normal. Normal intravascular flow voids are present. No abnormal intracranial enhancement. Skull and face: Calvarial marrow signal is normal. Orbits appear normal. Sinuses: Left maxillary sinus retention cysts. Sinuses and mastoids are otherwise clear. 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 Anterior circulation: Intracranial internal carotid arteries are normal in size and enhancement. The flow within the paired anterior cerebral arteries is normal and symmetric. The flow within the middle cerebral arteries is normal and symmetric. The anterior communicating artery is seen. No stenoses, occlusions, or aneurysms. Posterior circulation: The visualized portions of the vertebral arteries demonstrate normal caliber, and join to form a normal appearing basilar artery. Left protrusio artery demonstrates normal flow. The right posterior cerebral artery demonstrates markedly reduced flow. NECK MR ANGIOGRAM: Carotids: Great vessels demonstrate a conventional anatomy as they arise from the aortic arch. The origins of the common carotid arteries appear patent. The calibers and courses of both common carotid arteries are normal. The bifurcation regions appear normal bilaterally. The internal carotid arteries demonstrate normal course and caliber. Posterior circulation: The origins of the vertebral arteries appear patent. Proximal vertebral arteries not well-seen secondary venous overlap. Vertebral arteries are otherwise within normal limits Miscellaneous: There is a persistent right carotid-basilar communication as described above. Subclavian arteries appear patent. Pre-contrast images through the neck show no soft tissue abnormalities. IMPRESSION: BRAIN MRI: 1. Subacute right sided infarct involving the corpus callosal splenium, medial temporal lobe, thalamus, posterior limb of internal capsule, and occipital lobe. 2. No acute process. BRAIN MR ANGIOGRAM: 1. Persistent right trigeminal carotid-basilar anastomosis. 2. Severely reduced flow within the right posterior cerebral artery, compatible with the above described infarct. NECK MR ANGIOGRAM: 1. No internal carotid artery stenosis bilaterally. 2. The vertebral arteries are patent as visualized, but are not well-seen proximally secondary to venous overlap. The estimate of stenosis included in the report of the imaging study was calculated using the NASCET method Dictated by: Valerie Callahan M.D. on 06/26/2016 at 14:01 Approved by: Valerie Callahan M.D. on 06/26/2016 at 14:13 Cardiac Echo Impressions 06/26/16 Echocardiogram Report Interpretation Summary 1. Normal left ventricular size with mild proximal septal thickening and normal systolic function with an estimated EF of 60-65% 2. Normal right ventricular size and systolic function. 3. No evidence for valvular pathology. 4. A saline contrast study showed no evidence for interatrial shunt. There is no old study for comparison . Assessment & Plan Pt is a 50 y/o female w/ a hx of HTN, IDDM, presenting to the ED with a family member due to multiple vague neurological complaints onset 2-3 days ago. 1. Acute CVA, present on admission, resolving - Last felt normal 2 days prior to coming in - Initial NIH stroke score 4. + left hemianopsia, L pronator drift, R UE ataxia , now just with left hemianopsia - CT showed no acute intracranial abnormality. - Carotid doppler <50% stenosed - CTA pending - Passed swallow examination - PT recommends inpatient rehab or home with PT/home health - Echocardiogram unremarkable - Atorvastatin started, aspirin given in the ED - Nurse to asses neuro Q4hrs - Telemetry overnight awaiting echocardiogram. Consider d/c tomorrow - Lipid panel: elevated cholesterol and triglycerides. Will order fibrate and fish oil 2. Diabetes mellitus type 1, present on admission, chronic - Patient admits to forgetting her insulin, especially at night - Patient states that she is prescribed 50 U glargine at night and Novolog 10 units before each meal [facility] units QHS and QAM (?) - Ordered glargine 30 units QHS, lispro 5 units before each meal, medium dose coverage. Will adjust as needed - A1c 10 3. Diabetic neuropathy, present on admission, chronic - Gabapentin, prescribed 600mg BID. Consider restarting 4. Depression with anxiety, present on admission, chronic Continue home dose of Venlafaxine 5. Medication noncompliance -Patient admits to not taking both her insulin and hypertensive medications. Patient states that she does not take them because she forgets to take them however according to family sometime she electively decides not to take them. [facility] shows that she has been prescribed lisinopril and a statin which she states she doesn't remember ever having. - Acetaminophen as needed for mild pain/fever/headache - Bowel regimen as needed - Antiemetic as needed Patient admitted under inpatient status with expected length of stay > 2 midnights for severity of present symptoms, complexities of treatment plan and risk for adverse events CODE STATUS: Full. Confirmed with patient VTE Prophylaxis: Sub-Q Heparin (Unfractionated) VTE Mechanical Devices: Intermittant Pneumatic CD Resuscitation Status: CPR: Attempt Resuscitation Attending Statement The patient was seen and examined together with Dr. Lemons on 06/27/2016 and I agree with the history, exam and plan as outlined in the note above. Zakiya Lemons DO Jun 27, 2016 19:55 Amanda Arceo DO Jun 29, 2016 18:41
[2016-06-27] MEDS: Insulin GLARgine 100 Unit/mL Syringe SUBQ SCH (20:43)
[2016-06-28] VITALS (9 sets, daily range): BP systolic 120–163; BP diastolic 72–82; PULSE 75–89; RESP 18–20; O2SAT 97–99
[2016-06-28] MEDS: Heparin 5,000 Unit/mL Inj SUBQ SCH ×3 (00:34→15:48)
--- NOTE | 2016-06-28 00:37 | NUR ---
Headache Pt complained of sever headache, neuros were unchanged, BP at 163/81. Cooks paged Dr Mcnair with information, gave 975 tylenol. Left pt with call light beside her. Will continue to monitor neuro signs.
--- NOTE | 2016-06-28 02:10 | NUR ---
headache Pt resting/sleeping comfortably, will continue neuros. Left pt will call light at bedside.
[2016-06-28 06:24] LABS: BASOPHILS % (AUTO) 0.6 % (0-3); EOSINOPHILS % (AUTO) 4.1 % (0-5); MONOCYTES % (AUTO) 5.9 % (4-12); Mean Corpuscular Hemoglobin 28.2 pg (27.0-35.0); Mean Corpuscular Volume 81.2 fL (81-100); NEUTROPHILS % (AUTO) 38.3 % (40-74); Platelet Count 297 bil/L (150-400)
[2016-06-28] MEDS: Venlafaxine XR 75 mg ER24 Capsule PO SCH (07:51)
[2016-06-28] MEDS: Insulin LISPRO 300 Unit/3 mL Inj SUBQ SCH ×4 (08:01→20:41)
--- NOTE | 2016-06-28 11:57 | NUR ---
Social Work: Continued d/c planning Data: Pt is on day 3 of hospitalization. EMR reviewed. COMMERCIAL REAL ESTATE ASSISTANT called Ayana with [facility] in rehab, . She states that they are just now looking at the referral and that it will need to be authorized by pt's insurance before they can take her, which cannot happen until Thursday. COMMERCIAL REAL ESTATE ASSISTANT requested a call back regarding if they can accept pt and what doctor would follow as soon as possible. COMMERCIAL REAL ESTATE ASSISTANT notified MD and UR nurse. COMMERCIAL REAL ESTATE ASSISTANT will continue to follow. Assessment: Pt who is independent at baseline. Plan: Pt will d/c either to [facility] inpt rehab pending acceptance and insurance authorization. If pt cannot go to inpt rehab, Bea [facility]COR[facility] has been referred, F2F in COMMERCIAL REAL ESTATE ASSISTANT folder, access given. COMMERCIAL REAL ESTATE ASSISTANT will continue to follow. OMAR Cardenas
[2016-06-28] MEDS ORDERED: Glucose 40% Oral Gel 15 Gm Tube PO PRN (13:35)
--- NOTE | 2016-06-28 15:46 | PCM.PNMED ---
Subjective Date of Service Jun 28, 2016 Subjective Pt is a 50 y/o female w/ a hx of HTN, IDDM, presenting to the ED with a family member due to multiple vague neurological complaints onset 2-3 days ago. This morning patient states that she is doing well. She had a little headache last night but the Tylenol completely eliminated it. She is eating and ambulating. Denies nausea, dizziness, confusion, headache at this time, diarrhea , dysuria. She has been working with physical therapy. . Exam Vital Signs Vital Sign - Last Date Time Temp Pulse Resp B/P Pulse Ox O2 Delivery O2 Flow Rate FiO2 06/28/16 14:42 36.6 84 18 132/78 98 Room Air Intake and Output 06/27/16 06/27/16 06/28/16 Cumulative From/Thru 15:00 23:00 07:00 06/25/16 11:40 - 06/28/16 06:05 Intake Total 872 ml 300 ml 2972 ml Output Total 850 ml 1000 ml 5600 ml Balance 22 ml -700 ml -2628 ml Intake Oral 872 ml 300 ml 2972 ml Output Urine Total 850 ml 1000 ml 5600 ml # Bowel Movements 1 Exam General: A&O x3, pleasant, no acute distress, smiling HEENT: EOMI, PEERL, neck supple, full ROM, trachea midline Pulmonary: clear to auscultation B/L Cardiovascular: Regular rhythm, normal rate, No M/G/R Abd: soft, nontender, nondistended Extremities: no edema, no calf tenderness Neuro: Complete left hemianopsia. Otherwise, symptoms of stroke have resolved. Psych: Appropriate mood and effect. Poor understanding of her condition, disease IVs and Medications Medications Reviewed: Medications were reviewed in detail Lab and Diagnostics Result Diagram: 06/28/1638 06/28/16 0538 X-Rays, CTs and MRIs 06/25/16 CT BRAIN WITHOUT CONTRAST ([id number]) INDICATIONS: confusion TECHNIQUE: Noncontrast 4.5 mm thick angled axial sections acquired from the foramen magnum to the vertex, with coronal reformats. COMPARISON: [facility], CT, BRAIN W/O CONTRAST, 03/15/2007, 9:29. FINDINGS: Image quality: Excellent. CSF spaces: Basal cisterns are patent. No extra-axial fluid collections. The ventricles are symmetric in size and shape. Brain: No intracranial bleeds or masses. There is cerebral volume loss for age , with resultant ventricular and sulcal prominence. There are periventricular and deep white matter chronic small vessel ischemic changes. There is intracranial internal carotid artery atherosclerosis. Skull and face: Calvarium and visualized facial bones appear intact, without suspicious lesions. Sinuses: Left maxillary sinus retention cyst is present. Visualized sinuses and mastoids are otherwise clear. IMPRESSION: No acute intracranial abnormality. No explanation for confusion. Dictated by: Valerie Callahan M.D. on 06/25/2016 at 12:43 Approved by: Valerie Callahan M.D. on 06/25/2016 at 12:44 06/25/16 BILATERAL DUPLEX DOPPLER IMAGING OF THE CAROTIDS ([id number]) INDICATIONS: Evaluate stroke follow up TECHNIQUE: Color and pulse Doppler interrogation was performed of both carotid systems, with image documentation and velocity measurements. IMPRESSION: 1. Less than 50% bilateral internal carotid artery stenosis. 2. Antegrade vertebral artery flow bilaterally. Dictated by: Valerie Callahan M.D. on 06/25/2016 at 17:47 Approved by: Valerie Callahan M.D. on 06/25/2016 at 17:48 . 06/26/16 MRI STROKE PROTOCOL ([id number]) Pre- and post-contrast brain MRI, non-contrast brain MR angiogram, pre- and postcontrast neck MR angiogram INDICATIONS: stroke TECHNIQUE: Brain: Noncontrast axial T1 spin echo, axial T2 fast spin echo, sagittal and axial FLAIR, coronal T2 fast spin echo, axial gradient echo, axial diffusion and ADC through the brain. After the administration of contrast, axial 3D VIBE of the cranial vasculature and brain. Brain MRA: Non-contrast 3-D time of flight MR angiogram, with multiple maximum- intensity-projection (MIP) reformats performed. Neck MRA: Axial and sagittal TruFISP through the neck. Coronal dynamic MR angiogram during administration of contrast in the arterial and venous phases, with 3-dimenstional kxvsszg-pyosaarpn-wgbeazncox (MIP) reformats constructed from subtraction images. COMPARISON: [facility], MR, BRAIN W&W/O CONTRAST, 03/16/2007, 16: 19. [facility], US, US CAROTID DPLX DOPPLER BILAT, 06/25/2016, 16: 56. FINDINGS: Image quality: Excellent. BRAIN: CSF spaces: Ventricles are normal in size and shape. Basal cisterns are patent. No extra-axial fluid collections. Brain: No intracranial bleeds or mass effects. Marcelino-white matter interface is normal. Diffusion weighted images demonstrate a roughly 5 cm anteroposterior region of elevated signal intensity involving the corpus callosal splenium, extending into the right anterior/medial temporal lobe. There are several small adjacent foci of elevated diffusion signal within the right occipital lobe, as well as the posterior limb of the right internal capsule and right thalamus. These lesions demonstrate moderate FLAIR signal elevation. Mild diffuse cervical volume loss. Mild degree of patchy high FLAIR signal within the periventricular and subcortical white matter. Brainstem appears normal. Normal intravascular flow voids are present. No abnormal intracranial enhancement. Skull and face: Calvarial marrow signal is normal. Orbits appear normal. Sinuses: Left maxillary sinus retention cysts. Sinuses and mastoids are otherwise clear. 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 Anterior circulation: Intracranial internal carotid arteries are normal in size and enhancement. The flow within the paired anterior cerebral arteries is normal and symmetric. The flow within the middle cerebral arteries is normal and symmetric. The anterior communicating artery is seen. No stenoses, occlusions, or aneurysms. Posterior circulation: The visualized portions of the vertebral arteries demonstrate normal caliber, and join to form a normal appearing basilar artery. Left protrusio artery demonstrates normal flow. The right posterior cerebral artery demonstrates markedly reduced flow. NECK MR ANGIOGRAM: Carotids: Great vessels demonstrate a conventional anatomy as they arise from the aortic arch. The origins of the common carotid arteries appear patent. The calibers and courses of both common carotid arteries are normal. The bifurcation regions appear normal bilaterally. The internal carotid arteries demonstrate normal course and caliber. Posterior circulation: The origins of the vertebral arteries appear patent. Proximal vertebral arteries not well-seen secondary venous overlap. Vertebral arteries are otherwise within normal limits Miscellaneous: There is a persistent right carotid-basilar communication as described above. Subclavian arteries appear patent. Pre-contrast images through the neck show no soft tissue abnormalities. IMPRESSION: BRAIN MRI: 1. Subacute right sided infarct involving the corpus callosal splenium, medial temporal lobe, thalamus, posterior limb of internal capsule, and occipital lobe. 2. No acute process. BRAIN MR ANGIOGRAM: 1. Persistent right trigeminal carotid-basilar anastomosis. 2. Severely reduced flow within the right posterior cerebral artery, compatible with the above described infarct. NECK MR ANGIOGRAM: 1. No internal carotid artery stenosis bilaterally. 2. The vertebral arteries are patent as visualized, but are not well-seen proximally secondary to venous overlap. The estimate of stenosis included in the report of the imaging study was calculated using the NASCET method Dictated by: Valerie Callahan M.D. on 06/26/2016 at 14:01 Approved by: Valerie Callahan M.D. on 06/26/2016 at 14:13 06/27/16 CT ANGIO HEAD AND NECK (P) INDICATIONS: Stroke TECHNIQUE: Pre-contrast 4.5 mm thick sections acquired from the foramen magnum to the vertex. After the administration of intravenous contrast, 1 mm thick sections acquired from the aortic arch through the [place]. Post-contrast 4.5 mm thick sections then re-acquired from the foramen magnum to the vertex. 3- dimensional zowxcvr-pwgobfcub-awyxvzxpty (MIP) and/or volume rendering reformats were acquired of the central intracranial vasculature and neck separately. For radiation dose reduction, the following was used: automated exposure control, adjustment of mA and/or kV according to patient size. COMPARISON: [facility], , MR STROKE PROTOCOL, 06/26/2016, 12:11. FINDINGS: Image quality: Excellent. BRAIN: CSF spaces: Ventricles are normal in size and shape. Basal cisterns are patent. No extra-axial fluid collections. Brain: No midline shift. Hypodensity within the right temporo-occipital lobe, posterior limb of internal capsule, and posterolateral thalamus is present, corresponding to the subacute infarction seen by MRI. No intracranial bleeds or masses. Marcelino-white matter interface appears intact. Skull and face: Calvarium and facial bones appear intact, without suspicious lesions. Orbits appear normal. Sinuses: Left maxillary sinus retention cysts. Sinuses and mastoids are otherwise clear. HEAD CT ANGIOGRAPHY: Anterior circulation: Intracranial internal carotid arteries are normal in size and flow. The flow within the paired anterior cerebral arteries is normal and symmetric. The flow within the middle cerebral arteries is normal and symmetric. The anterior communicating artery is seen. No aneurysms are seen. Posterior circulation: Visualized portions of the vertebral arteries demonstrate normal caliber, and join to form a normal appearing basilar artery. Left posterior sternal arteries patent. There is high-grade stenosis of the P2 segment of the right posterior cerebral artery, corresponding to the abnormality in this location seen by MRI. No aneurysms are seen. NECK CT ANGIOGRAPHY: Carotid system: The great vessels demonstrate a conventional anatomy as they arise from the aortic arch. The origins of the common carotid arteries appear patent. The common carotid arteries demonstrate normal caliber and courses. The bifurcation regions are both widely patent. The internal carotid arteries demonstrate normal calibers and courses. Posterior circulation: The origins of the vertebral arteries both appear widely patent. The more superior extracranial portions of both vertebral arteries also demonstrate normal courses and calibers. They join to form a normal appearing basilar artery. Soft tissues: Visualized neck soft tissues demonstrate no suspicious abnormalities. Bones: No suspicious bony lesions. Visualized cervical spine appears normally aligned. IMPRESSION: 1. No internal carotid artery stenosis bilaterally. Patent bilateral vertebral arteries. 2. Subacute right posterior circulation infarct. 3. Severe narrowing of the right posterior cerebral artery, compatible with the severely reduced flow seen on MRI examination. Dictated by: Valerie Callahan M.D. on 06/27/2016 at 14:47 Approved by: Valerie Callahan M.D. on 06/27/2016 at 14:58 Cardiac Echo Impressions 06/26/16 Echocardiogram Report Interpretation Summary 1. Normal left ventricular size with mild proximal septal thickening and normal systolic function with an estimated EF of 60-65% 2. Normal right ventricular size and systolic function. 3. No evidence for valvular pathology. 4. A saline contrast study showed no evidence for interatrial shunt. There is no old study for comparison . Assessment & Plan Pt is a 50 y/o female w/ a hx of HTN, IDDM, who presented to the ED with a family member due to multiple vague neurological complaints onset 2-3 days ago. 1. Acute CVA - involving the corpus callosal splenium, medial temporal lobe, thalamus, posterior limb of internal capsule, and occipital lobe.Present on admission. Resolving. - Confirmed with MRA and CTA (see reports above) - Last felt normal 2 days prior to coming in therefore not a candidate for TPA - Initial NIH stroke score 4. + left hemianopsia, L pronator drift, R UE ataxia , now just with left hemianopsia - PT recommends inpatient rehab or home with PT/home health - Echocardiogram unremarkable - Telemetry so far has shown no atrial fibrillation - Lipid panel: elevated cholesterol and triglycerides (800). Atorvastatin started. Fish oil started. Consider fibrate as outpatient but held for now until patient has been taking atorvastatin to make sure she doesn't develop myalgias since a fibrate increases the risk. - Neurology, Dr. Crum, evaluated patient. Suggests holter monitor as outpatient for further work up and if negative then event monitor or Zio patch. 2. Diabetes mellitus type 1, present on admission, chronic - Patient admits to forgetting her insulin, especially at night - Currently glargine 40 units QHS, lispro 7 units before each meal, medium dose coverage. Will adjust as needed - A1c 10 3. Diabetic neuropathy, present on admission, chronic - Gabapentin, prescribed 600mg BID. Consider restarting 4. Depression with anxiety, present on admission, chronic Continue home dose of Venlafaxine 5. Medication noncompliance, present on admission, chronic -Patient admits to not taking both her insulin and hypertensive medications. Patient states that she does not take them because she forgets to take them however according to family sometime she electively decides not to take them. A review of [facility] outpatient shows that she has been prescribed lisinopril and a statin which she states she doesn't remember ever having. Outpatient A1c has been from 8 to 11. - Acetaminophen as needed for mild pain/fever/headache - Bowel regimen as needed - Antiemetic as needed Patient admitted under inpatient status with expected length of stay > 2 midnights for severity of present symptoms, complexities of treatment plan and risk for adverse events Expect discharge to inpatient rehabilitation on 06/30/16 CODE STATUS: Full. Confirmed with patient VTE Prophylaxis: Sub-Q Heparin (Unfractionated) VTE Mechanical Devices: Intermittant Pneumatic CD Resuscitation Status: CPR: Attempt Resuscitation Attending Statement The patient was seen and examined together with Dr. Lemons on 06/28/2016 and I agree with the history, exam and plan as outlined in the note above. Zakiya Lemons DO Jun 28, 2016 15:46 Amanda Arceo DO Jun 29, 2016 18:42
--- NOTE | 2016-06-28 18:28 | NUR ---
Blood sugars Pt has been having consistently high blood glucose. [id number] today Insulin orders were changed to just correctional dose with meals, Pt's Lantus was changed to 40 units instead of 30 units. Pt states that she does take 50 units at home when she remembers.
[2016-06-28] MEDS: Omega-3 Fatty Acids 1,000 mg Capsule PO SCH (20:26)
[2016-06-28] MEDS ORDERED: Insulin GLARgine 100 Unit/mL Syringe SUBQ SCH (21:00)
[2016-06-29] VITALS (9 sets, daily range): BP systolic 111–136; BP diastolic 68–77; PULSE 74–88; RESP 18–20; O2SAT 97–99
[2016-06-29] MEDS: Heparin 5,000 Unit/mL Inj SUBQ SCH ×3 (00:51→15:32)
--- NOTE | 2016-06-29 02:41 | NUR ---
activity Pt remained in bed for the shift, except when up to bathroom. Neuros are unchanged, pt does turn to L to visualize that area. Pt pleasant and conversational, occasionally hyperactive with conversation. Left room with call light at side of bed.
[2016-06-29] MEDS: Insulin LISPRO 300 Unit/3 mL Inj SUBQ SCH ×4 (08:16→21:18)
[2016-06-29] MEDS: Venlafaxine XR 75 mg ER24 Capsule PO SCH (08:18)
[2016-06-29] MEDS: Omega-3 Fatty Acids 1,000 mg Capsule PO SCH ×2 (08:19→21:23)
--- NOTE | 2016-06-29 10:08 | NUR ---
Social Work: Continued d/c planning Data: ASSEM[employer] LEAD PERSON received a voice mail from [facility] the afternoon of 06/30 stating that she reviewed pt but did not give an acceptance or denial. ASSEMBLY LEAD PERSON called inpt rehab back and left a message requesting an official yes or no today regarding if they can take pt and if they can which doctor will be working with her. PT/OT/ST still recommending inpt rehab, pt continues to want to go to inpt rehab. ASSEMBLY LEAD PERSON will continue to follow. OMAR Cardenas
[2016-06-29] MEDS: Ondansetron 2 mg/mL 2 mL Inj IV PRN (15:25)
--- NOTE | 2016-06-29 18:51 | PCM.PNMED ---
Subjective Date of Service Jun 29, 2016 Subjective Patient was examined at bedside today. Patient denies any chest pain, shortness of breath, nausea, vomiting, diarrhea. Exam Vital Signs Vital Sign - Last Date Time Temp Pulse Resp B/P Pulse Ox O2 Delivery O2 Flow Rate FiO2 06/29/16 18:20 36.6 78 18 132/68 97 Room Air Intake and Output 06/28/16 06/28/16 06/29/16 Cumulative From/Thru 15:00 23:00 07:00 06/25/16 11:40 - 06/29/16 06:37 Intake Total 1450 ml 400 ml 4822 ml Output Total 1200 ml 1600 ml 8400 ml Balance 250 ml -1200 ml -3578 ml Intake Oral 1450 ml 400 ml 4822 ml Output Urine Total 1200 ml 1600 ml 8400 ml # Bowel Movements 0 0 1 Exam Physical Exam: GEN: Patient was awake, alert, responding appropriately to questions HEENT: PERRLA, EOMI, Neck soft supple, trachea midline, nomocephalic/atraumatic CV: +S1/S2, RRR, no murmurs auscultated Respiratory: CTAB, no wheezes, rales, rhonchi GI: +bowel sounds x4, soft, compressible, non TTP EXT: no c/c/e Neuro: Left-sided hemianopsia complete, no other stroke symptoms all others have resolved Psych: mood and affect were appropriate IVs and Medications Medications Reviewed: Medications were reviewed in detail Lab and Diagnostics Result Diagram: 06/28/16 0538 06/29/16 0532 X-Rays, CTs and MRIs 06/25/16 CT BRAIN WITHOUT CONTRAST ([id number]) INDICATIONS: confusion TECHNIQUE: Noncontrast 4.5 mm thick angled axial sections acquired from the foramen magnum to the vertex, with coronal reformats. COMPARISON: [facility], [place], CT, BRAIN W/O CONTRAST, 03/15/2007, 9:29. FINDINGS: Image quality: Excellent. CSF spaces: Basal cisterns are patent. No extra-axial fluid collections. The ventricles are symmetric in size and shape. Brain: No intracranial bleeds or masses. There is cerebral volume loss for age , with resultant ventricular and sulcal prominence. There are periventricular and deep white matter chronic small vessel ischemic changes. There is intracranial internal carotid artery atherosclerosis. Skull and face: Calvarium and visualized facial bones appear intact, without suspicious lesions. Sinuses: Left maxillary sinus retention cyst is present. Visualized sinuses and mastoids are otherwise clear. IMPRESSION: No acute intracranial abnormality. No explanation for confusion. Dictated by: Valerie Callahan M.D. on 06/25/2016 at 12:43 Approved by: Valerie Callahan M.D. on 06/25/2016 at 12:44 06/25/16 BILATERAL DUPLEX DOPPLER IMAGING OF THE CAROTIDS ([id number]) INDICATIONS: Evaluate stroke follow up TECHNIQUE: Color and pulse Doppler interrogation was performed of both carotid systems, with image documentation and velocity measurements. IMPRESSION: 1. Less than 50% bilateral internal carotid artery stenosis. 2. Antegrade vertebral artery flow bilaterally. Dictated by: Valerie Callahan M.D. on 06/25/2016 at 17:47 Approved by: Valerie Callahan M.D. on 06/25/2016 at 17:48 . 06/26/16 MRI STROKE PROTOCOL ([id number]) Pre- and post-contrast brain MRI, non-contrast brain MR angiogram, pre- and postcontrast neck MR angiogram INDICATIONS: stroke TECHNIQUE: Brain: Noncontrast axial T1 spin echo, axial T2 fast spin echo, sagittal and axial FLAIR, coronal T2 fast spin echo, axial gradient echo, axial diffusion and ADC through the brain. After the administration of contrast, axial 3D VIBE of the cranial vasculature and brain. Brain MRA: Non-contrast 3-D time of flight MR angiogram, with multiple maximum- intensity-projection (MIP) reformats performed. Neck MRA: Axial and sagittal TruFISP through the neck. Coronal dynamic MR angiogram during administration of contrast in the arterial and venous phases, with 3-dimenstional aohtwfh-kmnjxfxvy-ovgcgpcmms (MIP) reformats constructed from subtraction images. COMPARISON: [facility], MR, BRAIN W&W/O CONTRAST, 03/16/2007, 16: 19. [facility], , CAROTID DPLX DOPPLER BILAT, 06/25/2016, 16: 56. FINDINGS: Image quality: Excellent. BRAIN: CSF spaces: Ventricles are normal in size and shape. Basal cisterns are patent. No extra-axial fluid collections. Brain: No intracranial bleeds or mass effects. Marcelino-white matter interface is normal. Diffusion weighted images demonstrate a roughly 5 cm anteroposterior region of elevated signal intensity involving the corpus callosal splenium, extending into the right anterior/medial temporal lobe. There are several small adjacent foci of elevated diffusion signal within the right occipital lobe, as well as the posterior limb of the right internal capsule and right thalamus. These lesions demonstrate moderate FLAIR signal elevation. Mild diffuse cervical volume loss. Mild degree of patchy high FLAIR signal within the periventricular and subcortical white matter. Brainstem appears normal. Normal intravascular flow voids are present. No abnormal intracranial enhancement. Skull and face: Calvarial marrow signal is normal. Orbits appear normal. Sinuses: Left maxillary sinus retention cysts. Sinuses and mastoids are otherwise clear. 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 Anterior circulation: Intracranial internal carotid arteries are normal in size and enhancement. The flow within the paired anterior cerebral arteries is normal and symmetric. The flow within the middle cerebral arteries is normal and symmetric. The anterior communicating artery is seen. No stenoses, occlusions, or aneurysms. Posterior circulation: The visualized portions of the vertebral arteries demonstrate normal caliber, and join to form a normal appearing basilar artery. Left protrusio artery demonstrates normal flow. The right posterior cerebral artery demonstrates markedly reduced flow. NECK MR ANGIOGRAM: Carotids: Great vessels demonstrate a conventional anatomy as they arise from the aortic arch. The origins of the common carotid arteries appear patent. The calibers and courses of both common carotid arteries are normal. The bifurcation regions appear normal bilaterally. The internal carotid arteries demonstrate normal course and caliber. Posterior circulation: The origins of the vertebral arteries appear patent. Proximal vertebral arteries not well-seen secondary venous overlap. Vertebral arteries are otherwise within normal limits Miscellaneous: There is a persistent right carotid-basilar communication as described above. Subclavian arteries appear patent. Pre-contrast images through the neck show no soft tissue abnormalities. IMPRESSION: BRAIN MRI: 1. Subacute right sided infarct involving the corpus callosal splenium, medial temporal lobe, thalamus, posterior limb of internal capsule, and occipital lobe. 2. No acute process. BRAIN MR ANGIOGRAM: 1. Persistent right trigeminal carotid-basilar anastomosis. 2. Severely reduced flow within the right posterior cerebral artery, compatible with the above described infarct. NECK MR ANGIOGRAM: 1. No internal carotid artery stenosis bilaterally. 2. The vertebral arteries are patent as visualized, but are not well-seen proximally secondary to venous overlap. The estimate of stenosis included in the report of the imaging study was calculated using the NASCET method Dictated by: Valerie Callahan M.D. on 06/26/2016 at 14:01 Approved by: Valerie Callahan M.D. on 06/26/2016 at 14:13 06/27/16 CT ANGIO HEAD AND NECK (P) INDICATIONS: Stroke TECHNIQUE: Pre-contrast 4.5 mm thick sections acquired from the foramen magnum to the vertex. After the administration of intravenous contrast, 1 mm thick sections acquired from the aortic arch through the [place]. Post-contrast 4.5 mm thick sections then re-acquired from the foramen magnum to the vertex. 3- dimensional cfhsgwa-arazoedso-tyzojnnplh (MIP) and/or volume rendering reformats were acquired of the central intracranial vasculature and neck separately. For radiation dose reduction, the following was used: automated exposure control, adjustment of mA and/or kV according to patient size. COMPARISON: [facility], , MR STROKE PROTOCOL, 06/26/2016, 12:11. FINDINGS: Image quality: Excellent. BRAIN: CSF spaces: Ventricles are normal in size and shape. Basal cisterns are patent. No extra-axial fluid collections. Brain: No midline shift. Hypodensity within the right temporo-occipital lobe, posterior limb of internal capsule, and posterolateral thalamus is present, corresponding to the subacute infarction seen by MRI. No intracranial bleeds or masses. Marcelino-white matter interface appears intact. Skull and face: Calvarium and facial bones appear intact, without suspicious lesions. Orbits appear normal. Sinuses: Left maxillary sinus retention cysts. Sinuses and mastoids are otherwise clear. HEAD CT ANGIOGRAPHY: Anterior circulation: Intracranial internal carotid arteries are normal in size and flow. The flow within the paired anterior cerebral arteries is normal and symmetric. The flow within the middle cerebral arteries is normal and symmetric. The anterior communicating artery is seen. No aneurysms are seen. Posterior circulation: Visualized portions of the vertebral arteries demonstrate normal caliber, and join to form a normal appearing basilar artery. Left posterior sternal arteries patent. There is high-grade stenosis of the P2 segment of the right posterior cerebral artery, corresponding to the abnormality in this location seen by MRI. No aneurysms are seen. NECK CT ANGIOGRAPHY: Carotid system: The great vessels demonstrate a conventional anatomy as they arise from the aortic arch. The origins of the common carotid arteries appear patent. The common carotid arteries demonstrate normal caliber and courses. The bifurcation regions are both widely patent. The internal carotid arteries demonstrate normal calibers and courses. Posterior circulation: The origins of the vertebral arteries both appear widely patent. The more superior extracranial portions of both vertebral arteries also demonstrate normal courses and calibers. They join to form a normal appearing basilar artery. Soft tissues: Visualized neck soft tissues demonstrate no suspicious abnormalities. Bones: No suspicious bony lesions. Visualized cervical spine appears normally aligned. IMPRESSION: 1. No internal carotid artery stenosis bilaterally. Patent bilateral vertebral arteries. 2. Subacute right posterior circulation infarct. 3. Severe narrowing of the right posterior cerebral artery, compatible with the severely reduced flow seen on MRI examination. Dictated by: Valerie Callahan M.D. on 06/27/2016 at 14:47 Approved by: Valerie Callahan M.D. on 06/27/2016 at 14:58 Cardiac Echo Impressions 06/26/16 Echocardiogram Report Interpretation Summary 1. Normal left ventricular size with mild proximal septal thickening and normal systolic function with an estimated EF of 60-65% 2. Normal right ventricular size and systolic function. 3. No evidence for valvular pathology. 4. A saline contrast study showed no evidence for interatrial shunt. There is no old study for comparison . Assessment & Plan Pt is a 50 y/o female w/ a hx of HTN, IDDM, who presented to the ED with a family member due to multiple vague neurological complaints onset 2-3 days ago. 1. Acute CVA - involving the corpus callosal splenium, medial temporal lobe, thalamus, posterior limb of internal capsule, and occipital lobe.Present on admission. Resolving. - Confirmed with MRA and CTA (see reports above) - Last felt normal 2 days prior to coming in therefore not a candidate for TPA - Initial NIH stroke score 4. + left hemianopsia, L pronator drift, R UE ataxia , now just with left hemianopsia - PT recommends inpatient rehab or home with PT/home health - Echocardiogram unremarkable - Telemetry so far has shown no atrial fibrillation - Lipid panel: elevated cholesterol and triglycerides (800). Atorvastatin started. Fish oil started. Consider fibrate as outpatient but held for now until patient has been taking atorvastatin to make sure she doesn't develop myalgias since a fibrate increases the risk. - Neurology, Dr. Crum, evaluated patient. Suggests holter monitor as outpatient for further work up and if negative then event monitor or Zio patch. 2. Diabetes mellitus type 1, present on admission, chronic - Patient admits to forgetting her insulin, especially at night - Currently glargine 50 units QHS, and add 50 units in the morning, lispro 7 units before each meal, medium dose coverage. Will adjust as needed - A1c 10 3. Diabetic neuropathy, present on admission, chronic - Gabapentin, prescribed 600mg BID. Consider restarting 4. Depression with anxiety, present on admission, chronic Continue home dose of Venlafaxine 5. Medication noncompliance, present on admission, chronic -Patient admits to not taking both her insulin and hypertensive medications. Patient states that she does not take them because she forgets to take them however according to family sometime she electively decides not to take them. A review of [facility] outpatient shows that she has been prescribed lisinopril and a statin which she states she doesn't remember ever having. Outpatient A1c has been from 8 to 11. - Acetaminophen as needed for mild pain/fever/headache - Bowel regimen as needed - Antiemetic as needed Patient admitted under inpatient status with expected length of stay > 2 midnights for severity of present symptoms, complexities of treatment plan and risk for adverse events Expect discharge to inpatient rehabilitation on 06/30/16 CODE STATUS: Full. Confirmed with patient Disposition: Patient is currently medically stable in regards to the CVA. The patient does need tighter control of her blood glucose. Will add 50 units of Lantus in the morning to her current regimen. Patient will most likely be discharged in the next 1-2 days to a rehabilitation stroke facility. Should hear back on 06/30/2016 if the patient has been accepted. The patient would benefit from inpatient rehabilitation especially with her left hemianopsia and then upon discharge would also benefit from home health as the patient does have short-term memory loss and does not always take her medications. VTE Prophylaxis: Sub-Q Heparin (Unfractionated) VTE Mechanical Devices: Intermittant Pneumatic CD Resuscitation Status: CPR: Attempt Resuscitation Amanda Arceo DO Jun 29, 2016 18:50
[2016-06-29] MEDS: Insulin GLARgine 100 Unit/mL Syringe SUBQ SCH (21:16)
[2016-06-29] MEDS: Insulin LISPRO High-Dose Scale SUBQ SCH (21:26)
[2016-06-30] VITALS (8 sets, daily range): BP systolic 111–137; BP diastolic 69–82; PULSE 51–89; RESP 18–20; O2SAT 95–98
[2016-06-30] MEDS: Heparin 5,000 Unit/mL Inj SUBQ SCH ×3 (01:46→16:42)
[2016-06-30] MEDS: Ondansetron 2 mg/mL 2 mL Inj IV PRN (05:48)
[2016-06-30] MEDS: Insulin LISPRO High-Dose Scale SUBQ SCH ×3 (07:30→16:45)
[2016-06-30 08:21] LABS: Mean Corpuscular Hemoglobin 28.1 pg (27.0-35.0)
[2016-06-30] MEDS: Insulin LISPRO 300 Unit/3 mL Inj SUBQ SCH ×4 (08:59→21:58)
[2016-06-30] MEDS: Insulin GLARgine 100 Unit/mL Syringe SUBQ SCH ×2 (09:00→21:57)
[2016-06-30] MEDS: Venlafaxine XR 75 mg ER24 Capsule PO SCH (09:02)
[2016-06-30] MEDS: Omega-3 Fatty Acids 1,000 mg Capsule PO SCH ×2 (09:03→20:30)
--- NOTE | 2016-06-30 09:22 | NUR ---
Social Work-continued d/c planning: Data:EMR Reviewed. GENI placed a call to Ayana in admissions at [facility] in rehab. Ayana states she already spoke with UR specialist Sina this morning regarding pt. Ayana states she requested updated clinicals to be faxed in this morning for her and MD to review for admission. UR specialist to fax these updated notes to Ayana. Ayana to call back once these are reviewed and will provide yes or no answer to GENI. GENI will continue to follow. Assessment:Pt who would benefit from inpt rehab. Plan:Updated clinicals to be faxed to [facility] in rehab this morning for review for possible admission. GENI will continue to follow. OMAR Jaime
--- NOTE | 2016-06-30 10:09 | NUR ---
Faxed updated clinicals to [facility] inpatient rehab
--- NOTE | 2016-06-30 16:08 | NUR ---
Social Work-continued d/c planning: Data:EMR reviewed. Pt is on day 5 of hospitalization for CVA per H&P. SW received a call back from Ayana at [facility] rehab who states that their biomedical manager reviewed the case and they do not feel like pt qualifies and could return home. PT will continue to see pt. OT and ST have not seen pt in the last couple days. SW to follow up with OT and ST for further recommendations. SW to follow up with pt and family tomorrow to discuss home with HH services vs outpt services. SW will continue to follow. Assessment:Pt who is independent at baseline. Plan: SW to follow up again tomorrow with pt and family to discuss home options. [facility] rehab has denied pt. SW will continue to follow. OMAR Jaime
--- NOTE | 2016-06-30 20:06 | PCM.PNMED ---
Subjective Date of Service Jun 30, 2016 Subjective Pt is a 50 y/o female w/ a hx of HTN, IDDM, presenting to the ED with a family member due to multiple vague neurological complaints onset 2-3 days ago. Today, Ms. Goncalves reports that she continues to have the same vision change and has a headache. She does not have any new numbness, tingling, or focal weakness. The tingling in her fingertips has improved. Exam Vital Signs Vital Sign - Last Date Time Temp Pulse Resp B/P Pulse Ox O2 Delivery O2 Flow Rate FiO2 06/30/16 18:39 36.7 51 20 126/75 98 Room Air Intake and Output 06/29/16 06/29/16 06/30/16 Cumulative From/Thru 15:00 23:00 07:00 06/25/16 11:40 - 06/30/16 05:41 Intake Total 600 ml 5422 ml Output Total 1200 ml 9600 ml Balance -600 ml -4178 ml Intake Oral 600 ml 5422 ml Output Urine Total 1200 ml 9600 ml # Bowel Movements 1 Exam General: A&O x3, pleasant, no acute distress, smiling HEENT: EOMI, PEERL, neck supple, full ROM, trachea midline Pulmonary: clear to auscultation B/L Cardiovascular: Regular rhythm, normal rate, No M/G/R Abd: soft, nontender, nondistended Extremities: no edema, no calf tenderness Neuro: Complete left hemianopsia. Otherwise, symptoms of stroke have resolved. Psych: Appropriate mood and effect. IVs and Medications Medications Reviewed: Medications were reviewed in detail Lab and Diagnostics Result Diagram: 06/30/16 0810 06/30/16 0810 X-Rays, CTs and MRIs 06/25/16 CT BRAIN WITHOUT CONTRAST ([id number]) INDICATIONS: confusion TECHNIQUE: Noncontrast 4.5 mm thick angled axial sections acquired from the foramen magnum to the vertex, with coronal reformats. COMPARISON: [facility], CT, BRAIN W/O CONTRAST, 03/15/2007, 9:29. FINDINGS: Image quality: Excellent. CSF spaces: Basal cisterns are patent. No extra-axial fluid collections. The ventricles are symmetric in size and shape. Brain: No intracranial bleeds or masses. There is cerebral volume loss for age , with resultant ventricular and sulcal prominence. There are periventricular and deep white matter chronic small vessel ischemic changes. There is intracranial internal carotid artery atherosclerosis. Skull and face: Calvarium and visualized facial bones appear intact, without suspicious lesions. Sinuses: Left maxillary sinus retention cyst is present. Visualized sinuses and mastoids are otherwise clear. IMPRESSION: No acute intracranial abnormality. No explanation for confusion. Dictated by: Valerie Callahan M.D. on 06/25/2016 at 12:43 Approved by: Valerie Callahan M.D. on 06/25/2016 at 12:44 06/25/16 BILATERAL DUPLEX DOPPLER IMAGING OF THE CAROTIDS ([id number]) INDICATIONS: Evaluate stroke follow up TECHNIQUE: Color and pulse Doppler interrogation was performed of both carotid systems, with image documentation and velocity measurements. IMPRESSION: 1. Less than 50% bilateral internal carotid artery stenosis. 2. Antegrade vertebral artery flow bilaterally. Dictated by: Valerie Callahan M.D. on 06/25/2016 at 17:47 Approved by: Valerie Callahan M.D. on 06/25/2016 at 17:48 . 06/26/16 MRI STROKE PROTOCOL ([id number]) Pre- and post-contrast brain MRI, non-contrast brain MR angiogram, pre- and postcontrast neck MR angiogram INDICATIONS: stroke TECHNIQUE: Brain: Noncontrast axial T1 spin echo, axial T2 fast spin echo, sagittal and axial FLAIR, coronal T2 fast spin echo, axial gradient echo, axial diffusion and ADC through the brain. After the administration of contrast, axial 3D VIBE of the cranial vasculature and brain. Brain MRA: Non-contrast 3-D time of flight MR angiogram, with multiple maximum- intensity-projection (MIP) reformats performed. Neck MRA: Axial and sagittal TruFISP through the neck. Coronal dynamic MR angiogram during administration of contrast in the arterial and venous phases, with 3-dimenstional fyezmzz-bcmjjrrrd-itwocvsgae (MIP) reformats constructed from subtraction images. COMPARISON: [facility], MR, BRAIN W&W/O CONTRAST, 03/16/2007, 16: 19. [facility], US, US CAROTID DPLX DOPPLER BILAT, 06/25/2016, 16: 56. FINDINGS: Image quality: Excellent. BRAIN: CSF spaces: Ventricles are normal in size and shape. Basal cisterns are patent. No extra-axial fluid collections. Brain: No intracranial bleeds or mass effects. Marcelino-white matter interface is normal. Diffusion weighted images demonstrate a roughly 5 cm anteroposterior region of elevated signal intensity involving the corpus callosal splenium, extending into the right anterior/medial temporal lobe. There are several small adjacent foci of elevated diffusion signal within the right occipital lobe, as well as the posterior limb of the right internal capsule and right thalamus. These lesions demonstrate moderate FLAIR signal elevation. Mild diffuse cervical volume loss. Mild degree of patchy high FLAIR signal within the periventricular and subcortical white matter. Brainstem appears normal. Normal intravascular flow voids are present. No abnormal intracranial enhancement. Skull and face: Calvarial marrow signal is normal. Orbits appear normal. Sinuses: Left maxillary sinus retention cysts. Sinuses and mastoids are otherwise clear. 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 Anterior circulation: Intracranial internal carotid arteries are normal in size and enhancement. The flow within the paired anterior cerebral arteries is normal and symmetric. The flow within the middle cerebral arteries is normal and symmetric. The anterior communicating artery is seen. No stenoses, occlusions, or aneurysms. Posterior circulation: The visualized portions of the vertebral arteries demonstrate normal caliber, and join to form a normal appearing basilar artery. Left protrusio artery demonstrates normal flow. The right posterior cerebral artery demonstrates markedly reduced flow. NECK MR ANGIOGRAM: Carotids: Great vessels demonstrate a conventional anatomy as they arise from the aortic arch. The origins of the common carotid arteries appear patent. The calibers and courses of both common carotid arteries are normal. The bifurcation regions appear normal bilaterally. The internal carotid arteries demonstrate normal course and caliber. Posterior circulation: The origins of the vertebral arteries appear patent. Proximal vertebral arteries not well-seen secondary venous overlap. Vertebral arteries are otherwise within normal limits Miscellaneous: There is a persistent right carotid-basilar communication as described above. Subclavian arteries appear patent. Pre-contrast images through the neck show no soft tissue abnormalities. IMPRESSION: BRAIN MRI: 1. Subacute right sided infarct involving the corpus callosal splenium, medial temporal lobe, thalamus, posterior limb of internal capsule, and occipital lobe. 2. No acute process. BRAIN MR ANGIOGRAM: 1. Persistent right trigeminal carotid-basilar anastomosis. 2. Severely reduced flow within the right posterior cerebral artery, compatible with the above described infarct. NECK MR ANGIOGRAM: 1. No internal carotid artery stenosis bilaterally. 2. The vertebral arteries are patent as visualized, but are not well-seen proximally secondary to venous overlap. The estimate of stenosis included in the report of the imaging study was calculated using the NASCET method Dictated by: Valerie Callahan M.D. on 06/26/2016 at 14:01 Approved by: Valerie Callahan M.D. on 06/26/2016 at 14:13 06/27/16 CT ANGIO HEAD AND NECK (P) INDICATIONS: Stroke TECHNIQUE: Pre-contrast 4.5 mm thick sections acquired from the foramen magnum to the vertex. After the administration of intravenous contrast, 1 mm thick sections acquired from the aortic arch through the Omega of Kay. Post-contrast 4.5 mm thick sections then re-acquired from the foramen magnum to the vertex. 3- dimensional skyitdu-flarpqbzn-xyuoydkncn (MIP) and/or volume rendering reformats were acquired of the central intracranial vasculature and neck separately. For radiation dose reduction, the following was used: automated exposure control, adjustment of mA and/or kV according to patient size. COMPARISON: [facility], , MR STROKE PROTOCOL, 06/26/2016, 12:11. FINDINGS: Image quality: Excellent. BRAIN: CSF spaces: Ventricles are normal in size and shape. Basal cisterns are patent. No extra-axial fluid collections. Brain: No midline shift. Hypodensity within the right temporo-occipital lobe, posterior limb of internal capsule, and posterolateral thalamus is present, corresponding to the subacute infarction seen by MRI. No intracranial bleeds or masses. Marcelino-white matter interface appears intact. Skull and face: Calvarium and facial bones appear intact, without suspicious lesions. Orbits appear normal. Sinuses: Left maxillary sinus retention cysts. Sinuses and mastoids are otherwise clear. HEAD CT ANGIOGRAPHY: Anterior circulation: Intracranial internal carotid arteries are normal in size and flow. The flow within the paired anterior cerebral arteries is normal and symmetric. The flow within the middle cerebral arteries is normal and symmetric. The anterior communicating artery is seen. No aneurysms are seen. Posterior circulation: Visualized portions of the vertebral arteries demonstrate normal caliber, and join to form a normal appearing basilar artery. Left posterior sternal arteries patent. There is high-grade stenosis of the P2 segment of the right posterior cerebral artery, corresponding to the abnormality in this location seen by MRI. No aneurysms are seen. NECK CT ANGIOGRAPHY: Carotid system: The great vessels demonstrate a conventional anatomy as they arise from the aortic arch. The origins of the common carotid arteries appear patent. The common carotid arteries demonstrate normal caliber and courses. The bifurcation regions are both widely patent. The internal carotid arteries demonstrate normal calibers and courses. Posterior circulation: The origins of the vertebral arteries both appear widely patent. The more superior extracranial portions of both vertebral arteries also demonstrate normal courses and calibers. They join to form a normal appearing basilar artery. Soft tissues: Visualized neck soft tissues demonstrate no suspicious abnormalities. Bones: No suspicious bony lesions. Visualized cervical spine appears normally aligned. IMPRESSION: 1. No internal carotid artery stenosis bilaterally. Patent bilateral vertebral arteries. 2. Subacute right posterior circulation infarct. 3. Severe narrowing of the right posterior cerebral artery, compatible with the severely reduced flow seen on MRI examination. Dictated by: Valerie Callahan M.D. on 06/27/2016 at 14:47 Approved by: Valerie Callahan M.D. on 06/27/2016 at 14:58 Cardiac Echo Impressions 06/26/16 Echocardiogram Report Interpretation Summary 1. Normal left ventricular size with mild proximal septal thickening and normal systolic function with an estimated EF of 60-65% 2. Normal right ventricular size and systolic function. 3. No evidence for valvular pathology. 4. A saline contrast study showed no evidence for interatrial shunt. There is no old study for comparison . Assessment & Plan Pt is a 50 y/o female w/ a hx of HTN, IDDM, who presented to the ED with a family member due to multiple vague neurological complaints onset 2-3 days ago. 1. Acute CVA - involving the corpus callosal splenium, medial temporal lobe, thalamus, posterior limb of internal capsule, and occipital lobe.Present on admission. Resolving. - Confirmed with MRA and CTA (see reports above) - Last felt normal 2 days prior to coming in therefore not a candidate for TPA - Initial NIH stroke score 4. + left hemianopsia, L pronator drift, R UE ataxia , now just with left hemianopsia - PT recommends inpatient rehab or home with PT/home health - Echocardiogram unremarkable - Telemetry so far has shown no atrial fibrillation - Lipid panel: elevated cholesterol and triglycerides (800). Atorvastatin started. Fish oil started. Consider fibrate or increased dose of atorvastatin as outpatient but held for now until patient has been taking atorvastatin to make sure she doesn't develop myalgias since a fibrate increases the risk. - Neurology, Dr. Crum, evaluated patient. Suggests holter monitor as outpatient for further work up and if negative then event monitor or Zio patch. - Resume aspirin 81 mg once daily at discharge 2. Diabetes mellitus type 1, present on admission, chronic - Patient admits to forgetting her insulin, especially at night - Currently glargine 50 units QHS, and add 50 units in the morning, lispro 7 units before each meal, medium dose coverage. Will adjust as needed - A1c 10 3. Diabetic neuropathy, present on admission, chronic - Gabapentin, prescribed 600mg BID. Consider restarting as an outpatient 4. Depression with anxiety, present on admission, chronic Continue home dose of Venlafaxine 5. Medication noncompliance, present on admission, chronic -Patient admits to not taking both her insulin and hypertensive medications. Patient states that she does not take them because she forgets to take them however according to family sometime she electively decides not to take them. [facility] shows that she has been prescribed lisinopril and a statin which she states she doesn't remember ever having. Outpatient A1c has been from 8 to 11. - Acetaminophen as needed for mild pain/fever/headache - Bowel regimen as needed - Antiemetic as needed Patient admitted under inpatient status with expected length of stay > 2 midnights for severity of present symptoms, complexities of treatment plan and risk for adverse events Expect discharge to inpatient rehabilitation on 06/30/16 CODE STATUS: Full. Confirmed with patient Disposition: Patient is currently medically stable in regards to the CVA. The patient does need tighter control of her blood glucose. Patient was not accepted for inpatient rehabilitation. Therefore, patient will be discharged with home health services and/or outpatient services as the patient does have short-term memory loss and does not always take her medications. VTE Prophylaxis: Sub-Q Heparin (Unfractionated) VTE Mechanical Devices: Intermittant Pneumatic CD Resuscitation Status: CPR: Attempt Resuscitation Time spent 30 minutes Attending Statement I have seen and evaluated patient at bedside in addition to directly supervising care provided by resident physician. I agree with above documentation. Please note, Aspirin is being initiated NOT resumed on discharge. Erin Villarreal DO Jun 30, 2016 20:05 Bucky Sexton DO Jul 01, 2016 08:38
[2016-07-01] MEDS: Heparin 5,000 Unit/mL Inj SUBQ SCH ×3 (01:15→15:50)
[2016-07-01 01:31] VITALS: BP 126/82; PULSE 93; RESP 20; O2SAT 97
[2016-07-01 05:20] VITALS: BP 107/68; PULSE 84; RESP 20; O2SAT 97
--- NOTE | 2016-07-01 05:24 | NUR ---
Uneventful night: Pt had an uneventful night, no c/o pain, chest pain or SOB. Pt slept most of the night, pleasant and cooperative with care.
[2016-07-01] MEDS: Insulin LISPRO 300 Unit/3 mL Inj SUBQ SCH ×2 (07:49→12:04)
[2016-07-01 07:50] LABS: Mean Corpuscular Hemoglobin 27.9 pg (27.0-35.0); Mean Corpuscular Volume 82.9 fL (81-100)
[2016-07-01] MEDS: Insulin GLARgine 100 Unit/mL Syringe SUBQ SCH (07:50)
[2016-07-01] MEDS: Omega-3 Fatty Acids 1,000 mg Capsule PO SCH (07:52)
[2016-07-01] MEDS: Venlafaxine XR 75 mg ER24 Capsule PO SCH (07:53)
[2016-07-01 09:30] VITALS: BP 133/76; PULSE 85; RESP 20; O2SAT 93
--- NOTE | 2016-07-01 11:58 | NUR ---
Social Work-continued d/c planning: Data:EMR Reviewed. Pt is on day 6 of hospitalization for CVA per H&P. Pt has been denied to go to Inpt rehab because she is too high functioning. PT has cleared pt for home with HH services and 24/7 care. SW met with pt to discuss discharge planning, SW role explained. Pt [place], but she is not sure if her sister will be able to stay with her 24/7. PT confirms that she has a friend daniela Gill [phone] who may be able to stay with pt. SW placed a call to pt's sister to confirm. Sister confirms that she cannot stay with pt at discharge, but can provide transport home. SW called friend Bridget and left message. to discuss. GENI spoke with Manuel at [facility] who confirms that they have referral for RN,PT,OT, and ST. F2F in folder. SW will continue to follow. Assessment:Pt who will need 24/7 care and HH. Plan:SW has left message for ana rosa Gill awaiting a return call for 24/7 care. Referral made to [facility] RN,PT,OT, and ST. F2F in folder. SW will continue to follow. OMAR Jaime
[2016-07-01] MEDS ORDERED: ASPI-973 PO (14:04)
[2016-07-01] MEDS ORDERED: ATOR40TA69 PO (14:04)
--- NOTE | 2016-07-01 14:07 | NUR ---
Social Work-readiness for discharge: Data:EMR Reviewed. Pt is on day 6 of hospitalization for CVA per H&P. Pt has been denied to go to Inpt rehab because she is too high functioning. PT has cleared pt for home with HH services and 24/7 care. SW met with pt to discuss discharge planning, SW role explained. Pt confirms that [place], but she is not sure if her sister will be able to stay with her 24/7. PT confirms that she has a friend names Bridget [phone] who may be able to stay with pt. SW placed a call to pt's sister to confirm. Sister confirms that she cannot stay with pt at discharge, but can provide transport home.SW called friend Bridget again and she is agreeable to provide 24/7 care at home today. SW provided update to pt's sister and provided her with information. Deborah agreeable for Bridget to provide care at home. GENI spoke with Manuel at [facility] who confirms that they have referral for RN,PT,OT, and ST. F2F in folder. SW will continue to follow. Assessment:Pt who will need 24/7 care and HH. Plan:Pt to discharge home with friend Bridget to provide 24/7 care. Referral made to [facility] RN,PT,OT, and ST. F2F in folder. SW will continue to follow. OMAR Jaime
--- NOTE | 2016-07-01 14:08 | NUR ---
Social Work-discharge: Data:EMR Reviewed. Pt is on day 6 of hospitalization for CVA per H&P. Pt has been denied to go to Inpt rehab because she is too high functioning and pt does not qualify for SNF. PT has cleared pt for home with HH services and 24/7 care. SW confirmed with pt's sister and friend Bridget regarding plan and both agreeable. Bridget to provide 24/7 care for pt at home. GENI updated Manuel [facility] [phone] with Bea of discharge and provided him with F2F and orders for RN,PT,OT, and ST. Pt's sister to provide transport home today. All updated and agreeable to plan. Assessment:Pt who will need 24/7 care and HH. Plan:Pt to discharge home today via POV. Pt does not qualify for Inpt rehab or SNF. Pt's friend Bridget to provide 24/7 care at home. F2F and orders provided to Bea for RN,PT,OT, and ST. All updated and agreeable to plan. OMAR Jaime
--- NOTE | 2016-07-01 14:15 | PCM.DIMED ---
Erin Villarreal DO 07/01/16 1415: Discharge Instructions Date of Service Jul 01, 2016 Dates of Hospitalization Jun 25, 2016 at 15:08 Discharge Diagnosis Discharge Diagnosis 1. Acute CVA 2. Diabetes mellitus type 1 3. Diabetic neuropathy 4. Depression with anxiety 5. Medication noncompliance Diet Heart Healthy, Diabetic Activity Limited until seen by PCP Call your provider Fever or Chills, Shortness of breath, Bleeding, Chest pain, Weakness (unilateral ) Patient Instructions We recommend having someone to help care for you 24 hours per day and 7 days per week. You can continue to use a front wheeled walker for assistance while walking. Continue physical therapy and nursing at home with home health services. Stop simvastatin and start atorvastatin 40 mg once daily at bedtime. Start taking aspirin 81 mg once daily. Continue your other medications as previously prescribed. You should discuss with your primary care provider about possibly changing your insulin regimen for better blood sugar control. We recommend seeing Dr. Brett Grover, an ditch digger, who has a focus on neurology. We recommend further evaluation with a Holter monitor study as an outpatient by cardiology. Follow up with your primary care provider in 1 week. Follow-up Provider: Fermin Larios DO Follow-up with PCP in: 1 week [facility] Follow-up in: Other (evaluation for possible Holter monitor, s/p CVA) Mid-level Provider (F9): OTHER,PHYSICIAN Follow-up with Mid-level in: 1 week (Dr. Brett Grover) Bucky Sexton DO 07/02/16 0750: Discharge Instructions Attending's Statement read and agree Erin Villarreal DO Jul 01, 2016 14:15 Bucky Sexton DO Jul 02, 2016 07:50
--- NOTE | 2016-07-01 15:11 | NUR ---
Discharge Reviewed d/c instructions with pt including care notes and new prescriptions, pt signed and given originals, copies to chart. IV d/c intact, tele removed yesterday. Pt indicated she fully understood d/c instructions which included follow up appts. Pt packing all belongings and getting ready for fern picker at 1630 from family member. Care continues in meantime. Addendum: 07/01/16 at 1809 by NANO CARVALHO RN pt taken off unit via WC by JEAN at approx [phone]
--- NOTE | 2016-07-01 15:25 | PCM.DC.MED ---
Discharge Summary Date of Service Jul 01, 2016 Dates of Hospitalization Date of Hospital Admission Jun 25, 2016 at 15:08 Date of Discharge: Jul 01, 2016 Providers: Admitting Physician: Amanda Arceo DO Primary Care Physician: Fermin Larios DO Attending Physician: Amanda Arceo DO Diagnosis at Time of Discharge Diagnosis at Time of Discharge 1. Acute CVA 2. Diabetes mellitus type 1 3. Diabetic neuropathy 4. Depression with anxiety 5. Medication noncompliance Procedures XRay, CTs & MRIs 06/25/16 CT BRAIN WITHOUT CONTRAST ([id number]) IMPRESSION: No acute intracranial abnormality. No explanation for confusion. Approved by: Valerie Callahan M.D. on 06/25/2016 at 12:44 06/25/16 US BILATERAL DUPLEX DOPPLER IMAGING OF THE CAROTIDS ([id number]) IMPRESSION: 1. Less than 50% bilateral internal carotid artery stenosis. 2. Antegrade vertebral artery flow bilaterally. Approved by: Valerie Callahan M.D. on 06/25/2016 at 17:48 . 06/26/16 MRI STROKE PROTOCOL ([id number]) IMPRESSION: BRAIN MRI: 1. Subacute right sided infarct involving the corpus callosal splenium, medial temporal lobe, thalamus, posterior limb of internal capsule, and occipital lobe. 2. No acute process. BRAIN MR ANGIOGRAM: 1. Persistent right trigeminal carotid-basilar anastomosis. 2. Severely reduced flow within the right posterior cerebral artery, compatible with the above described infarct. NECK MR ANGIOGRAM: 1. No internal carotid artery stenosis bilaterally. 2. The vertebral arteries are patent as visualized, but are not well-seen proximally secondary to venous overlap. The estimate of stenosis included in the report of the imaging study was calculated using the NASCET method Approved by: Valerie Callahan M.D. on 06/26/2016 at 14:13 06/27/16 CT ANGIO HEAD AND NECK (P) IMPRESSION: 1. No internal carotid artery stenosis bilaterally. Patent bilateral vertebral arteries. 2. Subacute right posterior circulation infarct. 3. Severe narrowing of the right posterior cerebral artery, compatible with the severely reduced flow seen on MRI examination. Approved by: Valerie Callahan M.D. on 06/27/2016 at 14:58 Cardiac Echo Impression 06/26/16 Echocardiogram Report Interpretation Summary 1. Normal left ventricular size with mild proximal septal thickening and normal systolic function with an estimated EF of 60-65% 2. Normal right ventricular size and systolic function. 3. No evidence for valvular pathology. 4. A saline contrast study showed no evidence for interatrial shunt. There is no old study for comparison . Brief History From the history and physical performed by Dr. Marlo Desai on 06/26/2016: Pt is a 50 y/o female w/ a hx of HTN, IDDM, presenting to the ED with a family member due to multiple vague neurological complaints onset 2-3 days ago. Patient is a poor historian and family member is no longer at bedside. Per ED notes, pt c/o confusion (disorientation), bilateral fingertip numbness, small duration of bilateral lower extremity weakness, intermittent mild headache, blurred vision, dizziness, nausea. Pt denies vomiting, diarrhea, bowel or bladder incontinence, cough, fever. She has a remote history of migraines. There is a family history of strokes. She admits to forgetting to take her insulin and she doesn't remember that she is supposed to be on blood pressure medication (after review of [employer], was prescribed lisinopril which she denies knowing about). Hospital Course Pt is a 50 y/o female w/ a hx of HTN, IDDM, who presented to the ED with a family member due to multiple vague neurological complaints onset 2-3 days ago. 1. Acute CVA - involving the corpus callosal splenium, medial temporal lobe, thalamus, posterior limb of internal capsule, and occipital lobe.Present on admission. Improved. - Confirmed with MRA and CTA (see reports above) - Last felt normal 2 days prior to coming in therefore not a candidate for TPA - Initial NIH stroke score 4. + left hemianopsia, L pronator drift, R UE ataxia , now just with left hemianopsia - PT recommended inpatient rehab or home with PT/home health - Echocardiogram unremarkable as above - Telemetry so far did not show atrial fibrillation - Lipid panel: elevated cholesterol (238) and triglycerides (941). Atorvastatin 40 mg once daily at bedtime started. Consider continuing fish oil, starting a fibrate, or increasing dose of atorvastatin as outpatient but held for now until patient has been taking atorvastatin to make sure she doesn't develop myalgias. - Neurology, Dr. Crum, evaluated patient. Suggested Holter monitor as outpatient for further work up and if negative then event monitor or Zio patch. - Started aspirin 81 mg once daily - Recommended follow up with Dr. Grover, an ledge man with a focus on neurology. 2. Diabetes mellitus type 1, present on admission, chronic - HgbA1c 10.2% - Patient admitted to forgetting her insulin, especially at night - While in the hospital, patient was given glargine 30 units twice per day, lispro 7 units before each meal, with medium dose correctional coverage. - Consider possibly modifying her insulin regiment at her follow up appointment for optimal blood glucose control. 3. Diabetic neuropathy, present on admission, chronic - Gabapentin, prescribed 600mg BID and resumed as an outpatient 4. Depression with anxiety, present on admission, chronic Continued home dose of Venlafaxine 5. Medication noncompliance, present on admission, chronic -Patient admitted to not taking both her insulin and hypertensive medications. Patient stated that she does not take them because she forgets to take them however according to family sometime she electively decides not to take them. A review of Replaced by [facility] outpatient showed that she has been prescribed lisinopril and a statin which she stated she doesn't remember ever having. Outpatient HgbA1c had been from 8 to 11. She will have a caregiver with her 24 hours per day and 7 days per week initially after discharge. She will also have home health services. Exam Vital Signs (Last) Date Time Temp Pulse Resp B/P Pulse Ox O2 Delivery O2 Flow Rate FiO2 07/01/16 09:30 36.3 85 20 133/76 93 Room Air Exam General: A&O x3, pleasant, no acute distress, smiling HEENT: EOMI, PEERL, neck supple, full ROM, trachea midline Pulmonary: clear to auscultation B/L Cardiovascular: Regular rhythm, normal rate, No murmurs, gallops, or rubs Abd: soft, nontender, nondistended Extremities: no edema, no calf tenderness Neuro: Complete left hemianopsia. Otherwise, symptoms of stroke have resolved. Psych: Appropriate mood and effect. Test 06/25/16 12:00 06/25/16 12:29 06/25/16 16:31 06/25/16 16:51 Activated Partial Thromboplast Time 26.9sec (22.8-33.0) Hemoglobin A1c 10.2% (4.8-5.6) Magnesium Level 1.8mg/dL (1.6-2.6) Hold Loving Top Tube Received (Received) Prothrombin Time 9.9sec (8.1-12.5) Prothromb Time International Ratio 0.93ratio Urine Color Yellow (YELLOW) Urine Appearance Clear (CLEAR,HAZY) Urine pH 7.0 (5.0-8.0) Urine Specific [place] 1.010 (1.003-1.035) Urine Protein Negativemg/dL (NEG,TRACE) Urine Glucose (UA) >1000mg/dL (NEGATIVE) Urine Ketones Negativemg/dL (NEGATIVE) Urine Occult Blood Negative (NEGATIVE) Urine Nitrite Negative (NEGATIVE) Urine Bilirubin Negative (NEGATIVE) Urine Urobilinogen Normalmg/dL (NORMAL) Urine Leukocyte Esterase Negative (NEGATIVE) Urine RBC 0-2/hpf (0-2) Urine WBC 0-5/hpf (0-5) Urine Epithelial Cells Few/hpf (NONE-MOD) Urine Crystals None seen (NONE SEEN) Urine Bacteria Few/hpf (NONE-FEW) Urine Hyaline Casts None/lpf (NONE) Urine Granular Casts None seen (NONE SEEN) Urine Waxy Casts None seen (NONE SEEN) Urine Red Blood Cell Casts None seen (NONE SEEN) Urine White Blood Cell Casts None seen (NONE SEEN) Urine Mucus None seen (None Seen) Urine Trichomonas None seen (NONE SEEN) Urine Yeast None (NONE SEEN) Urinalysis Comment None Urine Culture Reflexed Not indicated Test 06/27/16 06:30 06/28/16 05:38 06/30/16 08:10 07/01/16 07:36 Triglycerides Level 941mg/dL (0-149) Cholesterol Level 238mg/dL (100-199) LDL Cholesterol, Calculated mg/dL (0-99) VLDL Cholesterol mg/dL HDL Cholesterol 29mg/dL (>39) Cholesterol/HDL Ratio 8.21 (0.0-4.4) Neutrophils (%) (Auto) 38.3% (40-74) Lymphocytes (%) (Auto) 50.8% (14-46) Monocytes (%) (Auto) 5.9% (4-12) Eosinophils (%) (Auto) 4.1% (0-5) Basophils (%) (Auto) 0.6% (0-3) Total Bilirubin 0.4mg/dL (0.0-1.2) Aspartate Amino Transf (AST/SGOT) 229U/L (0-50) Alanine Aminotransferase (ALT/SGPT) 276U/L (0-32) Alkaline Phosphatase 148U/L (25-150) Total Protein 6.8g/dL (6.4-8.4) Albumin 4.2g/dL (3.4-5.0) White Blood Count 5.9th/mm3 (3.8-10.1) Red Blood Count 4.63mil/mm3 (3.90-5.20) Hemoglobin 12.9g/dL (12.0-15.6) Hematocrit 38.4% (35.0-46.0) Mean Corpuscular Volume 82.9fL (81-100) Mean Corpuscular Hemoglobin 27.9pg (27.0-35.0) Mean Corpuscular Hemoglobin Concent 33.6% (32.0-37.0) Red Cell Distribution Width 12.6% (12.3-15.4) Platelet Count 268bil/L (150-400) Sodium Level 140mEq/L (134-144) Potassium Level 4.0mEq/L (3.5-5.2) Chloride Level 101mEq/L (97-108) Carbon Dioxide Level 27mmol/L (18-29) Blood Urea Nitrogen 9mg/dL (6-24) Creatinine 0.47mg/dL (0.57-1.00) Estimat Glomerular Filtration Rate 200mL/min (>59) Glucose Level 171mg/dL (60-99) Calcium Level 9.5mg/dL (8.5-10.1) Discharge Medications Discharge Medications Aspirin (Aspirin) 81 Mg Tablet 81 MG PO DAILY Prescribed by: SAURAV AGARWAL DO Atorvastatin Calcium (Atorvastatin Calcium) 40 Mg Tablet 40 MG PO DAILY Prescribed by: SAURAV AGARWAL DO Insulin Aspart (NovoLOG U-100 Pen) 100 Unit/Ml Insuln.pen 10 UNITS SQ TIDWM ( Reported) Insulin Glargine (Lantus U100 Solostar Insulin Pen) 100 Unit/1 Ml Insuln.pen 50 UNITS SQ HS (Reported) Lisinopril (Lisinopril) 5 Mg Tablet 5 MG PO DAILY (Reported) Hasn't started. Wasn't aware MD had prescribed for her. Venlafaxine ER (Venlafaxine ER) 75 Mg Tab.er.24 75 MG PO DAILY (Reported) As needed Acetaminophen (Acetaminophen) 325 Mg Capsule 650 MG PO Q6H PRN PRN Headache ( Reported) Gabapentin (Gabapentin) 100 Mg Capsule 100 MG PO DAILY PRN PRN Leg pain ( Reported) Durable Medical Equipment ([bath bench]) DAILY (DME) Prescribed by: MARLO DESAI DO Walker (Ultra-Light Rollator) 1 Each Each 1 EACH MC DAILY (DME) Prescribed by: MARLO DESAI DO Followup Plan Discharge Diet: Heart Healthy, Diabetic Discharge Activity: Limited until seen by PCP Patient Instructions We recommend having someone to help care for you 24 hours per day and 7 days per week. You can continue to use a front wheeled walker for assistance while walking. Continue physical therapy and nursing at home with home health services. Stop simvastatin and start atorvastatin 40 mg once daily at bedtime. Start taking aspirin 81 mg once daily. Continue your other medications as previously prescribed. You should discuss with your primary care provider about possibly changing your insulin regimen for better blood sugar control. We recommend seeing Dr. Brett Grover, an ledge man, who has a focus on neurology. We recommend further evaluation with a Holter monitor study as an outpatient by cardiology. Follow up with your primary care provider in 1 week. Follow-up Provider: Fermin Larios DO Follow-up with PCP in: 1 week Provider: [facility] Follow-up in: Other (evaluation for possible Holter monitor, s/p CVA) Mid-level Provider: OTHER,PHYSICIAN Follow-up with Mid-level in: 1 week (Dr. Brett Grover) Time spent 40 minutes Attending Statement I have seen and evaluated patient at bedside in addition to directly supervising care provided by resident physician. I agree with above documentation. copies to: [facility]; Fermin Larios Marissa L DO Jul 01, 2016 15:25 Bucky Sexton DO Jul 02, 2016 07:57
== END 2016-07-01 16:36 | disposition home health service (06) | DRG 66 ==
LOC: SED 11:38 → OBSVTOIN 15:08 → MPC 15:08
PROVIDERS: ADMIT Neuromusculoskeletal Medicine & OMM; ATTEND Neuromusculoskeletal Medicine & OMM
DX: I63.431 Cerebral infarction due to embolism of right posterior cerebral artery (principal); E10.42 Type 1 diabetes mellitus with diabetic polyneuropathy; H53.47 Heteronymous bilateral field defects; R27.0 Ataxia, unspecified; I10 Essential (primary) hypertension; R29.703 NIHSS score 3; Z79.4 Long term (current) use of insulin; F41.8 Other specified anxiety disorders; Z91.14 Patient's other noncompliance with medication regimen

== ENCOUNTER 2016-09-12 11:39 | Emergency (ER) | payer OTHER ==
[~2016-09-12] VITALS: Ht 160 cm; Wt 69.5 kg
[~2016-09-12 11:39] MED LIST changes: +ACET325C PO; +ASPI-973 PO; +ATOR40TA69 PO; +GABA-500 PO; -GABA100C PO; +INSU100I SQ; +INSU100I13 SQ; -INSU100V3 IJ; -INSU100V6 SQ; +LISI-571 PO; -SIMV10TA4 PO; -VENL75CA3 PO; +VENL75TA87 PO; +WALK1EAC55 MC; +[UNRECOGNIZED DRUG - SUPPLY]
[2016-09-12 11:47] VITALS: BP 174/98; PULSE 98; RESP 16; O2SAT 96
--- NOTE | 2016-09-12 12:52 | ED.REPORT ---
HPI-Psychiatric Illness Date of Service September 12, 2016 ED Provider: Ruma Goodman History of Present Illness: feels meds have stopped working. [facility] is [facility]. effexor increased to 150 and buspar added and gapabanten, lisinopril lipitor. no counselor at present. wants the "right medication" no thought of self harm or harm to others. Has stable housing Nursing Notes Stated Complaint: SEVERE PANIC DISORDER Chief Complaint: Psychiatric Complaint Nursing Notes Reviewed: Yes Allergies: Coded Allergies: No Known Allergies (Unverified Allergy, Unknown, 09/12/16) Scheduled Aspirin (Aspirin) 81 Mg Tablet 81 MG PO DAILY Atorvastatin Calcium (Atorvastatin Calcium) 40 Mg Tablet 40 MG PO DAILY Insulin Aspart (NovoLOG U-100 Pen) 100 Unit/Ml Insuln.pen 10 UNITS SQ TIDWM Insulin Glargine (Lantus U100 Solostar Insulin Pen) 100 Unit/1 Ml Insuln.pen 50 UNITS SQ HS Lisinopril (Lisinopril) 5 Mg Tablet 5 MG PO DAILY Hasn't started. Wasn't aware MD had prescribed for her. Venlafaxine ER (Venlafaxine ER) 75 Mg Tab.er.24 75 MG PO DAILY Scheduled PRN Acetaminophen (Acetaminophen) 325 Mg Capsule 650 MG PO Q6H PRN PRN Headache Gabapentin (Gabapentin) 100 Mg Capsule 100 MG PO DAILY PRN PRN Leg pain General Time Seen by MD: 12:44 Chief Complaint Anxious Hx Obtained From: Patient Risk-Psychiatric Illness Suicide Risk Stratification Suicide Risk Factors - Adult: : Prior psych admissionNo: Access to firearms, Alcohol use, Close associate suicide, Family Hx of Suicide, Previous attempt, Substance abuse RF Statements: Risk factors reviewed Past Medical History Past Medical History Reports: Diabetes mellitus, Hypertension, Denies: Asthma Past Surgical History Reports: Cholecystectomy Smoking History Never Smoker Social History Alcohol Use: "Social" (holidays) Drug Use: Denies drug use Occupation lives by self in disability complex 09/12/2016 Review of Systems Basic Review of Systems Eyes: Vision NL, No discharge Hematologic: No bleeding, No bruising Allergy / Immune: No allergy Physical Exam Initial Vital Signs Vital Signs (First) Date Time Temp Pulse Resp B/P Pulse Ox O2 Delivery O2 Flow Rate FiO2 09/12/16 11:47 36.4 98 16 174/98 96 Room Air Initial VS: Reviewed, Vital signs abnormal Head / Eyes: Atraumatic, Normocephalic, PERRL ENT: Mucous membranes moist, Conjunctiva normal, No scleral icterus Neck: Supple, Non-tender, Full range of motion Respiratory: Breath sounds normal, Clear to auscultation, No respiratory distress Cardiovascular: Regular rate & rhythm, Heart sounds normal, Intact distal pulses Abdomen / GI: Soft, Non-tender, No guarding, No rebound, No distention Back: No CVA tenderness Lymphatic: No lymphadenopathy Extremities: Vascular intact, Neuro intact, No swelling, No tenderness Skin: Warm, Dry, No cyanosis General/Constitutional: Awake, Alert, No acute distress, Well appearing, Well developed, Well hydrated, Well nourished, Cooperative, Not toxic appearing patient is sitting comfortable in a chair in the ER. Converses easily when her sister has gone to x-ray. States did not take her medication including insulin today. Neurologic: Oriented X3, Speech NL, No motor deficits, No sensory deficits Psychiatric: Affect NL, Mood NL, Not suicidal, Not homicidal, No hallucinations , Cognitive function NL Respiratory / Chest: Atraumatic, Breath sounds NL, Breath sounds = bilat, No respiratory distress Cardiovascular: Heart rate NL, Regular rhythm, Heart sounds NL, No gallop Interpretation & Diagnostics Lab Results Interpretation Test 09/12/16 13:13 Hold Urine Received (Received) Discharge & Departure Impression: Primary Impression: Anxiety Patient Instructions: Anxiety (ED) Additional Instructions: You have a long standing issue with anxiety. I think counseling and some self help tips to help with anxiety would be very helpful to you. Please speak with a counselor about these options. You have an appointment with Dr. Mcnair on Friday 09/15 at 3:50 to discuss possible medication changes. You are being started on visteral 50 mg 3 times a day. Please see how this helps with your anxiety. Dr. Mcnair may decide to provide this medication on a ongoing basis. You will need to discuss with her how you did over the weekend. Return to the ER if you feel unsafe in any way. Please work on controling your diabetes. Get out and walk 3 times a day for 30 minutes each time. Start a journal about the interesting things you discover on your walks. This will help with anxiety and your blood sugar control. Referrals: Fermin Larios DO (PCP) EDSupervising Provider for [facility]: Donald Marley MD copies to: Cathy Mcnair DO; Fermin Larios Sue ARNP September 12, 2016 12:52
[2016-09-12 15:21] VITALS: BP 137/95; PULSE 118; O2SAT 96
== END 2016-09-12 15:20 | disposition home or self-care (01) ==
LOC: EDUNIT# 11:39 → SED 11:39
DX: F41.9 Anxiety disorder, unspecified (principal); I10 Essential (primary) hypertension; E11.9 Type 2 diabetes mellitus without complications; Z79.82 Long term (current) use of aspirin; Z79.4 Long term (current) use of insulin

== ENCOUNTER 2016-12-26 08:40 | Emergency (ER) | payer OTHER ==
[~2016-12-26] VITALS: Ht 160 cm; Wt 64.5 kg
[2016-12-26 08:44] VITALS: BP 137/88; PULSE 96; RESP 22; O2SAT 99
--- NOTE | 2016-12-26 08:51 | ED.REPORT ---
HPI-Back Pain 40 and Over Date of Service Dec 26, 2016 ED Provider: Evi Con Patient is a 55 year old female with a hx of chronic back pain, HTN, and DM who presents to the ED s/p reinjuring an old back injury two weeks ago. 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 Her pain is localized to her lower back with tingling down her L leg. Associated symptoms include trouble walking secondary to pain. She denies numbness, bowel or bladder incontinence, focal weakness, fevers, chills, neck pain, or any other symptoms. She has been taking Ibuprofen for her pain, as well as using ice and heat. Her original injury occurred in 2005 s/p repetitive heavy lifting at work. She was diagnosed with a herniated disc between L4-5. Nursing Notes Stated Complaint: LOWER BACK PAIN Chief Complaint: Back Pain or Injury Nursing Notes Reviewed: Yes Allergies: Coded Allergies: No Known Allergies (Unverified Allergy, Unknown, 09/12/16) Scheduled Aspirin (Aspirin) 81 Mg Tablet 81 MG PO DAILY Atorvastatin Calcium (Atorvastatin Calcium) 40 Mg Tablet 40 MG PO DAILY Insulin Aspart (NovoLOG U-100 Pen) 100 Unit/Ml Insuln.pen 10 UNITS SQ TIDWM Insulin Glargine (Lantus U100 Solostar Insulin Pen) 100 Unit/1 Ml Insuln.pen 50 UNITS SQ HS Lisinopril (Lisinopril) 5 Mg Tablet 5 MG PO DAILY Hasn't started. Wasn't aware MD had prescribed for her. Venlafaxine ER (Venlafaxine ER) 75 Mg Tab.er.24 75 MG PO DAILY Scheduled PRN Acetaminophen (Acetaminophen) 325 Mg Capsule 650 MG PO Q6H PRN PRN Headache Cyclobenzaprine (Cyclobenzaprine) 10 Mg Tablet 10 MG PO TID PRN PRN Spasm Gabapentin (Gabapentin) 100 Mg Capsule 100 MG PO DAILY PRN PRN Leg pain Naproxen (Naproxen) 500 Mg Tab 500 MG PO BID PRN PRN For Pain General Time Seen by MD: 08:51 Chief Complaint Back pain Hx Obtained From: Patient Arrived By: Walk-in Sudden in Onset?: No Onset Occurred: More than a week ago... (2 weeks) Symptom Duration: Since onset Caused by: Bending Quality: Painful Radiation: : Left leg above knee Severity: Current: Moderate Severity: Maximum: Moderate Similar Sx Previous: Yes Risk Factors )( AAA Risk Stratification Abdominal Aortic Aneurysm Risk: Hypertension Risk factors reviewed )( TAD Risk Stratification HypertensionNo Risk factors reviewed Past Medical History Past Medical History HTN DM Chronic back pain Past Surgical History Denies Smoking History Unknown if Ever Smoker Social History Other Social History: Good social support Ambulatory Status Independent Review of Systems Review of Systems Note: +tingling down L leg Constitutional: Denies: Chills, Fever Female: Denies: Incontinence Musculoskeletal: Reports: Back pain, Denies: Neck pain Neurologic: Reports: Problem walking, Denies: Bladder dysfunction, Bowel dysfunction, Focal weakness, Numbness Complete sys rev & neg: except as marked. Physical Exam Initial Vital Signs Vital Signs (First) Date Time Temp Pulse Resp B/P Pulse Ox O2 Delivery O2 Flow Rate FiO2 12/26/16 08:44 36.6 96 22 137/88 99 Room Air Initial VS: Reviewed, Vital signs normal Head / Eyes: Atraumatic, Normocephalic Neck: Supple, Full range of motion Skin: Warm, Dry Psychiatric: Mood/affect normal, Behavior normal, Normal thought content General/Constitutional: Awake, Alert Distress / Hydration: Positive: Distress moderate Respiratory / Chest: Atraumatic, Breath sounds NL, Breath sounds = bilat, No respiratory distress Cardiovascular: Heart rate NL, Regular rhythm, Heart sounds NL Abdomen: Atraumatic, Soft, Non-tender Back: Atraumatic Positive straight leg raise on R Neurologic: Oriented X3, Speech NL, No motor deficits, No sensory deficits Re-Eval/Medical Decision Med Decision/Clinical Course Exacerbation of chronic back pain without particular high-risk features. We will discharge him naproxen and cyclobenzaprine. Return and follow-up precautions given Re-Evaluation/Progress : Time of Eval: 09:17 Re-Evaluation/Progress Note: Discussed plan for discharge. Patient understands and agrees with plan. All questions addressed at this time. Counseled Regarding: Diagnosis, Need for follow-up, When/why to return to ED Discharge & Departure Impression: Primary Impression: Lumbosacral strain Encounter type: initial encounter Qualified Code: S39.012A - Strain of muscle, fascia and tendon of lower back, initial encounter Disposition: Home Discharge Condition All VS Reviewed: Yes Condition: Stable Patient Instructions: Lumbar Radiculopathy (ED) Additional Instructions: Use naproxen and cyclobenzaprine for pain. Call your regular doctor today for a close outpatient follow-up appointment. Return to the ER as needed for worsening pain associated with a high fever, associated persistent loss of motor or sensory function, inability to urinate or loss of control of your bowels, or other concerns. Referrals: Fermin Larios DO (PCP) Praveen Attestation Portions of this note were transcribed by Sujata Major. I, Dr. Steve personally performed the history, physical exam and medical decision-making; I reviewed and confirmed the accuracy of the information in the transcribed note. Signed by: Praveen Dorsey, 12/26/16 copies to: Fermin Larios Timothy S DO Dec 26, 2016 08:51 SUJATA MAJOR Dec 26, 2016 08:59
[2016-12-26] MEDS ORDERED: CYCL10TA9 PO (09:14)
[2016-12-26] MEDS ORDERED: NPR500T PO (09:14)
== END 2016-12-26 09:28 | disposition home or self-care (01) ==
LOC: SED 08:40 → EDUNIT# 08:40 → SED 09:28
DX: S39.012A Strain of muscle, fascia and tendon of lower back, initial encounter (principal); X50.0XXA Overexertion from strenuous movement or load, initial encounter; Y93.89 Activity, other specified; Y92.89 Other specified places as the place of occurrence of the external cause; Y99.8 Other external cause status; I10 Essential (primary) hypertension; E11.9 Type 2 diabetes mellitus without complications; Z79.4 Long term (current) use of insulin; Z79.82 Long term (current) use of aspirin